=== PATIENT | male | born 1970 | race Caucasian/White ===

== ENCOUNTER 2020-05-15 00:32 | Emergency (ER) | payer MEDICAID, SELFPAY ==
[2020-05-15 00:56] VITALS: BP 189/120; PULSE 74; RESP 18; TEMP 36.7; O2SAT 98; BMI 74.0
--- NOTE | 2020-05-15 01:21 | ED_ITS ---
HPI - General Adult General Chief complaint: Ear Problems Stated complaint: EAR PAIN Time Seen by Provider: 05/15/20 01:05 Source: patient Mode of arrival: ambulatory Limitations: no limitations History of Present Illness HPI narrative: 50-year-old male with history of hypertension, diabetes presents today with left ear pain. He reports that over the past week is a throbbing, 2 of 10 intensity left ear pain. He has been using hydrogen peroxide That he has been placing side of his left ear canal but is not making the pain any better. He denies any loss of hearing. He denies any sore throat or runny nose. he denies any fevers, chills. He denies any chest pain shortness of breath. He is without further systemic complaints. Onset (ago): week(s) ( One week) Severity: mild Severity scale (1-10): 2 Pain Consistency: constant Relieving factors: none Exacerbating factors: none Associated symptoms: denies other symptoms Related Data Previous Rx's Medication Instructions Recorded amoxicillin-pot clavulanate 1 tab PO BID 5 Days #10 tab 05/15/20 [Augmentin] Allergies Allergy/AdvReac Type Severity Reaction Status Date / Time No Known Allergies Allergy Unverified 04/30/20 15:28 Review of Systems Constitutional: Constitutional: Denies daytime sleepiness Eyes: Eyes: Reports blurry vision and Reports decreased night vision ENT: Reports Normal hearing present, Denies halitosis, Denies dysphagia, Reports otalgia ( left ear), Denies nasal congestion, Denies nasal discharge and Denies nose pain Cardiovascular: Cardiovascular: Denies epigastric discomfort, Denies rapid heart rate and Denies dyspnea on exertion Respiratory: Respiratory: Denies pain with cough and Denies dyspnea on exertion Gastrointestinal: Gastrointestinal: Denies change in stool character, Denies GI cramping and Denies dysphagia Genitourinary: Genitourinary: Denies change in libido Musculoskeletal: Musculoskeletal: Denies joint swelling and Denies stiffness Neurologic: Reports Normal hearing present Psychiatric: Psychiatric: Denies change in libido Endocrine: Endocrine: Denies change in libido [facility] Social History Social History (Updated 05/15/20 @ 01:26 by Sabas De La Rosa MD) Smoking Status: Current every day smoker Tobacco Type: Cigarette Packs Per Day: 1 Cigarettes Per Day: 20.0 Smoked in Last 30 Days: Yes Patient Interested in Nicotine Replacement: No Advance Directives: No Advance Directives Information Provided: No Physical Exam Vital Signs and I&O and Narrative: Vital Signs and I&O: Vital Signs Temp 98.0 F 05/15/20 00:56 Pulse 74 05/15/20 00:56 Resp 18 05/15/20 00:56 BP 189/120 H 05/15/20 00:56 Pulse Ox 98 05/15/20 00:56 Intake & Output 05/14/20 05/14/20 05/15/20 06:59 18:59 06:59 Weight 241 kg Body Mass Index 74.0 Const: General: cooperative, no acute distress, alert and awake Orientation/consciousness: patient oriented x3 HENMT: Head: Yes normal to inspection, Yes normocephalic and Yes atraumatic Ears: hearing grossly normal bilaterally, external ears normal, TM normal on the right, left TM abnormal ( left tympanic membrane is erythematous and bu lging.), mastoids normal, no periauricular adenopathy and other ( No tenderness to palpation with pulling of the tragus. ) Mouth: Normal oral and palatal mucosa present Eyes: Eyelids: Yes eyelids normal Conjunctivae: conjunctivae normal Sclerae: sclerae normal Corneas: corneas normal EOM: EOMs intact bilaterally Neck: Neck: Yes normal visual inspection, Yes full ROM and Yes trachea midline Resp: Effort & Inspection: normal respiratory effort and no tracheal deviation Auscultation: clear to auscultation bilaterally Cardio: Jugular venous distension: no JVD Rate: regular rate Rhythm: regular rhythm Heart sounds: S1 normal heart sound present and S2 normal heart sound present GI: Inspection: Yes normal to inspection Palpation (GI): Soft to palpation and nontender Skin: General skin exam: no rashes or lesions noted Neuro: General: patient oriented x3 and moves all extremities Cranial nerves: Yes Normal hearing present Motor exam (neuro): Normal motor muscle tone present throughout Extrem: General: Yes normal to inspection and Yes full ROM Psych: Appearance: grossly normal and well kempt Mental Status: mental status grossly normal Medical Decision Making MDM Narrative Medical decision making narrative: 50-year-old male who presents today with left ear pain for about 1 week. He has been using hydrogen peroxide to make it better. His physical exam reveals a well-appearing male, no acute distress. He has bulging and erythematous left tympanic membrane. Exam is consistent with otitis media. He has no mastoid tenderness, no periauricular lymphadenopathy and was suspicion of mastoiditis. He has no pain with pulling on the tragus I doubt otitis externa. The patient is placed on Augmentin. He was given discharge instructions and return precautions which were acknowledged. Discharge Plan Discharge Clinical Impression: Acute pain of left ear, Otitis media Patient Disposition: Home, Self-Care Instructions: Ear Infection (ED) Additional Instructions: Take the antibiotic as prescribed for a total of 5 days. Please use 650 mg of acetaminophen every 6 hours for your pain. Followup with your primary care doctor as needed. If you develop any new or concerning symptoms please return to the emergency department. Prescriptions: New amoxicillin-pot clavulanate [Augmentin] 875-125 mg tablet 1 tab PO BID 5 Days Qty: 10 RF: 0
[2020-05-15] MEDS: Amoxicillin/Potassium Clav 875 MG TABLET PO (01:24)
== END 2020-05-15 01:59 | disposition home or self-care (01) ==
PROVIDERS: Emergency Provider Emergency Medicine
DX: H66.92 Otitis media, unspecified, left ear (principal); I10 Essential (primary) hypertension; E11.9 Type 2 diabetes mellitus without complications; F17.210 Nicotine dependence, cigarettes, uncomplicated
CPT/HCPCS: 99283

== ENCOUNTER 2020-05-19 16:36 | Emergency (ER) | payer MEDICAID, SELFPAY ==
[2020-05-19 17:06] VITALS: BP 174/119; PULSE 91; RESP 16; TEMP 36.8; O2SAT 97; BMI 38.0
--- NOTE | 2020-05-19 17:13 | ED_ITS ---
HPI - Ear Problem General Chief complaint: Ear Problems Stated complaint: ?EAR INFECTION Time Seen by Provider: 05/19/20 16:55 Source: patient Mode of arrival: ambulatory Limitations: no limitations History of Present Illness HPI Narrative: left ear pain, swelling, decreased hearing x days. Seen here 1 week ago and prescribed augmentin for presumed AOM. Complaint: ear pain and decreased hearing Location: left ear Duration: constant Severity: mild Relieving factors: nothing Exacerbating factors: nothing Discharge from ear: no Related Data Previous Rx's Medication Instructions Recorded amoxicillin-pot clavulanate 1 tab PO BID 5 Days #10 tab 05/15/20 [Augmentin] ciprofloxacin HCl 500 mg PO BID #14 tab 05/19/20 ciprofloxacin-dexamethasone 4 drp OTIC (EARS) BID 7 Days #7.5 05/19/20 [Ciprodex] ml Allergies Allergy/AdvReac Type Severity Reaction Status Date / Time No Known Allergies Allergy Verified 05/19/20 17:12 Review of Systems Review of Systems: Yes all other systems are reviewed and are negative Constitutional: Constitutional: Reports no additional constitutional complaints, Denies body ache(s), Denies chills, Denies fever(s), Denies headache(s) and Denies weakness Eyes: Eyes: Reports no additional eye complaints and Denies change in vision ENT: Reports system reviewed and no additional complaints, except as documented, Denies dizziness, Reports otalgia, Denies headache(s), Reports hearing loss, Denies nasal congestion, Denies nasal discharge and Denies neck pain Cardiovascular: Cardiovascular: Reports no additional cardiovascular complaints, Denies chest pain, Denies leg edema and Denies dyspnea Respiratory: Respiratory: Reports no additional respiratory complaints, Denies cough and Denies dyspnea Gastrointestinal: Gastrointestinal: Reports no additional gastrointestinal complaints, Denies abdominal pain, Denies diarrhea, Denies nausea and Denies vomiting Genitourinary: Genitourinary: Denies urinary incontinence Musculoskeletal: Musculoskeletal: Reports no additional musculoskeletal complaints, Denies back pain, Denies arthralgias, Denies joint swelling, Denies neck pain, Denies numbness and Denies tingling Integumentary/Breasts: Skin/Breast: Reports system reviewed and no additional complaints, except as docu and Denies rash Neurologic: Reports system reviewed and no additional complaints, except as documented, Denies Abnormal speech present, Denies dizziness, Denies headache(s), Denies numbness, Denies tingling and Denies weakness [facility] Past Medical History Attestation statement: The following information was validated with the patient. Source: obtained from family and nursing notes reviewed Medical History Diabetic acidosis, type II HTN (hypertension) Social History Social History Alcohol intake: never Smoking Status: Current every day smoker Tobacco Type: Cigarette Packs Per Day: 1 Cigarettes Per Day: 20.0 Smoked in Last 30 Days: Yes Use of substances other than those prescribed or required for medical reasons: No Substance Use Type: Marijuana Any prior treatment program specific to substance use: No Advance Directives: No Advance Directives Information Provided: No Physical Exam Vital Signs and I&O and Narrative: Vital Signs and I&O: Vital Signs Temp 98.3 F 05/19/20 17:06 Pulse 91 05/19/20 17:06 Resp 16 05/19/20 17:06 BP 174/119 H 05/19/20 17:06 Pulse Ox 97 05/19/20 17:06 Intake & Output 05/18/20 05/19/20 05/19/20 18:59 06:59 18:59 Weight 123.831 kg Body Mass Index 38.0 Const: General: cooperative, healthy appearing, comfortable and no acute distress Orientation/consciousness: patient oriented x3 Limitations: no limitations HENMT: Head: Yes normal to inspection Ears: hearing grossly normal bilaterally, external ear abnormal (L canal swelling/tenderness), normal mastoids bilaterally, no periauricular adenopathy and unable to visualize TM General nose exam: Normal external nose present Face and sinus: Yes normal facial exam Mouth: Normal oral and palatal mucosa present Throat: Yes posterior oropharynx normal Eyes: General: appearance normal, both eyes and all related structures Pupils: Equal, round and reactive pupils present Neck: Neck: Yes normal visual inspection Chest: Chest palpation & inspection: normal inspection of the chest Resp: Effort & Inspection: normal respiratory effort Auscultation: clear to auscultation bilaterally Cardio: Rate: regular rate Rhythm: regular rhythm Peripheral pulses: Peripheral pulses 2+ throughout GI: Inspection: Yes normal to inspection Palpation (GI): Soft to palpation and nontender Auscultation: normal bowel sounds Back/Spine/Pelvis: Thoracic/Lumbar Spine: thoracic and lumbar spine normal to inspection Skin: General skin exam: no rashes or lesions noted Neuro: General: patient oriented x3, no focal motor deficits and normal sensation to monofilament Cranial nerves: Yes Equal, round and reactive pupils present Cognition (Neuro): normal cognition Speech: No Abnormal speech present Gait exam (Neuro): Normal gait present Motor exam (neuro): 5/5 motor strength present throughout Extrem: General: Yes normal to inspection Procedures Procedure Narrative Procedure Narrative: Ear wick placed left ear with drops MDM - Ear MDM Narrative Medical decision making narrative: left otitis externa. No mastoid tenderness, lymphadenopathy. Wick placed with drops. Hypertensive. Patient tells me he has been not been taking his medications for the last few days. Asymptomatic. We discussed resuming medications as soon as possible. Reviewed worrisome signs and symptoms and when to return to the emergency department. Comfortable discharge home. Discharge Plan Discharge Clinical Impression: Hypertension Otitis externa Qualifiers: Otitis externa type: diffuse Chronicity: acute Laterality: left Qualified Code( s): H60.312 - Diffuse otitis externa, left ear Patient Disposition: Home, Self-Care Instructions: Otitis Externa (ED) Additional Instructions: Remove the wick after 3 days if it doesnt fall out by itself Return for severe pain behind ear or fever >100.4 Your blood pressure was very high. Please start taking your medications again. Prescriptions: New ciprofloxacin-dexamethasone [Ciprodex] 0.3-0.1 % drops,suspension 4 drp otic (ears) BID 7 Days Qty: 7.5 RF: 0 ciprofloxacin HCl 500 mg tablet 500 mg PO BID Qty: 14 RF: 0 No Action amoxicillin-pot clavulanate [Augmentin] 875-125 mg tablet 1 tab PO BID 5 Days Qty: 10 RF: 0 Referrals: Physician,Unknown [Primary Care Provider] - 2 days ( )
[2020-05-19] MEDS: NeoMYCIN/Polymyxin/HC Otic Sol BOTTLE 4 DROP EAR-LEFT (17:20)
--- NOTE | 2020-05-19 17:35 | PC.NURSE ---
EAR WICK PLACED AND EAR DROPS GIVE TO LEFT EAR BY SCAR SQUIRES.
== END 2020-05-19 17:56 | disposition home or self-care (01) ==
PROVIDERS: Emergency Provider Emergency Medicine
DX: H60.312 Diffuse otitis externa, left ear (principal); H92.02 Otalgia, left ear; I10 Essential (primary) hypertension; F17.200 Nicotine dependence, unspecified, uncomplicated; Z71.6 Tobacco abuse counseling
CPT/HCPCS: 99283; 99284

== ENCOUNTER 2020-07-16 11:21 | Outpatient (REF) | payer MEDICAID, SELFPAY | END 2020-07-16 11:22 | disposition home or self-care (01) | LOC: HO.LAB 11:21 | PROVIDERS: Visit Provider Internal Medicine | DX: Z20.828 Contact with and (suspected) exposure to other viral communicable diseases (principal) | CPT/HCPCS: C9803; U0003 ==

== ENCOUNTER 2020-07-27 15:56 | Emergency (ER) | payer MEDICAID, SELFPAY ==
[2020-07-27 16:08] VITALS: BP 155/106; PULSE 93; RESP 16; TEMP 37.1; O2SAT 97; BMI 36.2
--- NOTE | 2020-07-27 17:29 | CT_ITS ---
EXAMINATION: CT ABDOMEN AND PELVIS WITHOUT CONTRAST CLINICAL INFORMATION: Right flank pain. Hematuria. COMPARISON: None. TECHNIQUE: Contiguous axial thin section helical images of the abdomen and pelvis were performed without oral or IV contrast. The data set was reformatted in the coronal and sagittal planes and reviewed on an independent workstation. DLP: 818 mGy-cm. FINDINGS: The visualized lung bases are clear. The visualized portions of the heart are unremarkable. The liver is of normal size and diffuse decreased attenuation without focal lesions nor intrahepatic biliary ductal dilation. The patient is status post cholecystectomy. Surgical clips are present. The spleen, pancreas, adrenal glands are unremarkable. Both kidneys are of normal size and attenuation without hydronephrosis or nephrolithiasis. There is a 3.7 cm left renal cyst. There is no abdominal free fluid. There is neither mesenteric nor retroperitoneal lymphadenopathy. There is sigmoid diverticulosis with trace adjacent fat stranding. There are no fluid collections. Otherwise, unremarkable unopacified loops of small and large bowel are identified. There is no pelvic free fluid. The urinary bladder is unremarkable. There is neither pelvic nor inguinal lymphadenopathy. Bone windows: Neither sclerotic nor lytic bone lesions are identified. CT/CT abdomen pelvis wo con IMPRESSION: Neither hydronephrosis nor nephrolithiasis. Sigmoid diverticulosis with trace adjacent fat stranding likely inside outside sales representative of mild manifestations of diverticulitis. No drainable fluid collections. Automated exposure control (Care Dose) Adjustment of the mA and/or kv according to patient size (this includes techniques or standardized protocols for targeted exams where dose is matched to indication / reason for exam; i.e. extremities or head).
[2020-07-27 17:39] LABS: Basophils Absolute Auto 0.1 X10*3/uL (0.0-0.2); Basophils Percent Auto 1.1 % (0-2); Eosinophils Absolute Auto 0.3 X10*3/uL (0.0-0.4); Eosinophils Percent Auto 3.4 % (0-4); Hematocrit 50.1 % (42-52); Hemoglobin 16.3 g/dl (14.0-18.0); Imm Gran Abs Auto 0.03 X10*3/uL (0.00-0.03); Imm Gran Pct Auto 0.4 % (0.0-0.4); Lymphocytes Absolute Auto 2.2 X10*3/uL (1.2-4.9); MANUAL DIFF FLAG NO; Mean Corpuscular HGB Conc 32.5 g/dl (31.0-36.0); Mean Corpuscular Hemoglobin 27.4 pg (27.0-33.0); Mean Corpuscular Volume 84.2 fL (80-98); Mean Platelet Volume 11.9 fL (9.4-12.4); Monocytes Absolute Auto 0.6 X10*3/uL (0.1-1.2); Monocytes Percent Auto 7.6 % (2-11); Neutrophils Percent Auto 60.5 % (45-73); Platelet Count 222 X10*3/uL (160-400); Red Blood Count 5.95 X10*6/uL (4.60-5.80); Red Cell Distribution Width 13.4 % (11.0-16.0); White Blood Count 8.3 X10*3/uL (4.8-10.8)
[2020-07-27] MEDS: 0.9 % Sodium Chloride 1,000 ML 999 ML IV (17:54)
[2020-07-27 17:58] LABS: COVID-19 Test Negative (Negative)
[2020-07-27 18:00] VITALS: BP 164/100; PULSE 70; RESP 16; TEMP 36.4; O2SAT 99
[2020-07-27 18:00] LABS: Glucose Urine UA NEG (NEG); Leukocyte Esterase Urine 1+ (NEG); Nitrite Urine NEG (NEG); PH 5.5 (5.0-8.0); Specific Gravity - Urine >= 1.030 (1.005-1.025); Urine Blood TRACE (NEG); Urine Ketones 5 MG/DL (NEG); Urine Protein 2+ MG/DL (NEG-TRACE)
[2020-07-27 18:03] LABS: Anion Gap 13 (12-20); Appearance Urine HAZY; Blood Urea Nitrogen 10 mg/dL (9-16); Calcium 9.2 mg/dL (8.4-10.2); Carbon Dioxide 27 mmol/L (22-29); Chloride 104 mmol/L (96-108); Color Urine DARK YELLOW; Creatinine Clr Calc Pharmacy 85.5; Estimated Glomerular Filt Rate 55; Glucose Random 112 mg/dL (60-115); Potassium 4.4 mmol/l (3.3-5.1); Sodium 140 mmol/L (135-145)
[2020-07-27 18:11] LABS: Bacteria Urine 2+ /LPF; WBC Urine 50-75 /HPF (0-4)
--- NOTE | 2020-07-27 18:19 | ED_ITS ---
HPI - Male Genitourinary General Chief complaint: Urogenital-Male Stated complaint: Covid symptoms Time Seen by Provider: 07/27/20 17:06 Source: patient Mode of arrival: ambulatory Limitations: no limitations History of Present Illness HPI Narrative: 50-year-old male with past medical history of hypertension and diabetes presents with 3 days of fevers, left-sided and suprapubic abdominal pain, diarrhea, difficulty urinating, and possible exposure to sexually transmitted infection. He does not report any penile discharge, testicular pain, chest pain, chest pressure, palpitations, shortness of breath abdominal distention, weakness and chills. MD Complaint: dysuria and possible STD exposure Onset (ago): day(s) (3) Duration: constant Location: left flank and abdomen Severity: moderate Severity scale (1-10): 8 Quality: aching, burning and stabbing Relieving factors: none Exacerbating factors: urination, movement and bowel movement Context: known STD exposure Associated symptoms: Reports denies other symptoms Related Data Sexually active: Yes Previous Rx's Medication Instructions Recorded amoxicillin-pot clavulanate 1 tab PO BID 5 Days #10 tab 05/15/20 [Augmentin] ciprofloxacin HCl 500 mg PO BID #14 tab 05/19/20 ciprofloxacin-dexamethasone 4 drp OTIC (EARS) BID 7 Days #7.5 05/19/20 [Ciprodex] ml levofloxacin 750 mg PO Q24H 7 Days #7 tab 07/27/20 metronidazole [Flagyl] 500 mg PO Q8H 7 Days #21 tab 07/27/20 Allergies Allergy/AdvReac Type Severity Reaction Status Date / Time No Known Allergies Allergy Verified 05/19/20 17:12 Review of Systems Review of Systems: Constitutional: No Weight loss, positive Fever, No Chills, No Night Sweats, positive Fatigue, No Malaise ENT/Mouth: No Hearing loss, No Ear Pain, No Nasal Congestion, No Sinus Pain, No Hoarseness, No sore throat, No Rhinorrhea, No Swallowing Difficulty Eyes: No Eye Pain, No Swelling, No Redness, No Foreign Body, No Discharge, No Vision Changes Cardiovascular: No Chest Pain, No SOB, No Dyspnea on Exertion, No Orthopnea, No Edema, No Palpitations Respiratory: No Cough, No Sputum, No Wheezing, No Smoke Exposure, No Dyspnea Gastrointestinal: Positive Nausea, no Vomiting, positive Diarrhea, positive abdominal Pain, No Hematochezia, No Melena Genitourinary: no irregular bleeding, No Dysuria, No Urinary Frequency, No Hematuria, No Urinary Incontinence, No Urgency, positive left Flank Pain, No Urinary Flow Changes, positive Hesitancy Musculoskeletal: No joint pain, No Myalgias, No Joint Swelling Skin: No Skin Lesions, No rash Neuro: No Weakness, No Numbness, No Paresthesias, No Loss of Consciousness, No Dizziness, No Headache Psych: No Anxiety/Panic, No Depression, No SI/HI/AH/VH, No Social Issues Heme/Lymph: No Bruising, No Bleeding,No Lymphadenopathy Endocrine: No Polyuria, No Polydipsia, No Temperature Intolerance Yes all other systems are reviewed and are negative PMFSH Past Medical History Attestation statement: The following information was validated with the patient. Medical History Diabetic acidosis, type II HTN (hypertension) Social History Social History Alcohol intake: never Smoking Status: Current every day smoker Tobacco Type: Cigarette Packs Per Day: 1 Cigarettes Per Day: 20.0 Substance Use Type: Marijuana Advance Directives: No Advance Directives Information Provided: No Physical Exam Vital Signs: Vital Signs: Last Vital Signs Temp 97.6 F 07/27/20 18:00 Pulse 70 07/27/20 18:00 Resp 16 07/27/20 18:00 BP 164/100 H 07/27/20 18:00 Pulse Ox 99 07/27/20 18:00 Body Mass Index 36.2 Appearance: Alert. Oriented X3. Moderate distress. Eyes: Pupils equal, round and reactive to light. ENT: Pharynx normal. Neck: Normal inspection. Neck supple. CVS: Tachycardic heart rate and rhythm. Pulses normal. Respiratory: No respiratory distress. Breath sounds normal. Abdomen: Soft and tenderness to left lower quadrant and suprapubic, negative psoas, obturator, Strange's, McBurney's. No genital lesions or penile discharge Skin: Skin warm and dry. Normal skin color. Normal skin turgor. Extremities: No lower extremity edema. Neuro: No motor deficit. No sensory deficit. Course Course Course Narrative: 50-year-old male with hypertension and diabetes presents with multiple concerns. We will test for STI and treat for chlamydia and gonorrhea. If syphilis returns positive we will treat with penicillin. Patient does have bilateral CVA tenderness, left lower quadrant pain, and suprapubic abdominal pain to palpation. Will order CBC, Chem 7, urinalysis, and CT scan of the abdomen. Labs are otherwise normal, urinalysis indicates UTI, CT scan of the abdomen shows mild diverticulitis. Plan is to treat with Levaquin and Flagyl for intra- abdominal infection. Levaquin will cover for UTI patient continues to be hypertensive at 164/100 upon discharge patient was advised to follow-up with primary care for further workup. Patient verbalized understanding of and agrees to plan of care discharge home. MDM - Male Genitourinary Differential Diagnosis Differential diagnosis: Likely urinary tract infection, urethritis, epididymitis, prostatitis, acute retention of urine and inguinal hernia Medical Records Attestation: I reviewed the patient's medical records. Lab Data Attestation: I reviewed the patient's lab results. Result diagrams: 07/27/20 17:30 07/27/20 17:30 Labs: Lab Results 07/27/20 07/27/20 07/27/20 Range/Units 17:30 17:30 17:30 WBC 8.3 (4.8-10.8) X10*3/uL RBC 5.95 H (4.60-5.80) X10*6/uL Hgb 16.3 (14.0-18.0) g/dl Hct 50.1 (42-52) % MCV 84.2 (80-98) fL MCH 27.4 (27.0-33.0) pg MCHC 32.5 (31.0-36.0) g/dl RDW 13.4 (11.0-16.0) % Plt Count 222 (160-400) X10*3/uL MPV 11.9 (9.4-12.4) fL Immature Gran % (Auto) 0.4 (0.0-0.4) % Neut % (Auto) 60.5 (45-73) % Lymph % (Auto) 27.0 (20-40) % Gates % (Auto) 7.6 (2-11) % Eos % (Auto) 3.4 (0-4) % Baso % (Auto) 1.1 (0-2) % Lymph # (Auto) 2.2 (1.2-4.9) X10*3/uL Gates # (Auto) 0.6 (0.1-1.2) X10*3/uL Eos # (Auto) 0.3 (0.0-0.4) X10*3/uL Baso # (Auto) 0.1 (0.0-0.2) X10*3/uL Abs Immat Gran (auto) 0.03 (0.00-0.03) X10*3/uL Absolute Neuts (auto) 5.0 (2.0-8.3) X10*3/uL Absolute Nucleated RBC 0.000 (0.0-0.012) X10*3/uL Nucleated RBC % (auto) 0.0 (0.0-0.2) /100WBC Sodium 140 (135-145) mmol/L Potassium 4.4 (3.3-5.1) mmol/l Chloride 104 (96-108) mmol/L Carbon Dioxide 27 (22-29) mmol/L Anion Gap 13 (12-20) BUN 10 (9-16) mg/dL Creatinine 1.38 (0.5-1.4) mg/dL Estim Creat Clear Calc 85.5 Estimated GFR 55 Random Glucose 112 (60-115) mg/dL Calcium 9.2 (8.4-10.2) mg/dL Urine Color DARK YELLOW Urine Appearance HAZY Urine pH 5.5 (5.0-8.0) Ur Specific [place] >= 1.030 H (1.005-1.025) Urine Protein 2+ H (NEG-TRACE) MG/DL Urine Glucose (UA) NEG (NEG) MG/DL Urine Ketones 5 (NEG) MG/DL Urine Blood TRACE (NEG) Urine Nitrite NEG (NEG) Ur Leukocyte Esterase 1+ H (NEG) Urine RBC 1-4 (0) /HPF Urine WBC 50-75 H (0-4) /HPF Ur Squamous Epith Cells NONE /LPF Urine Bacteria 2+ /LPF T.pallidum Ab (EIA) (Nonreactive) COVID-19 (YAMILETH) (Negative) COVID-19 Clin Com 07/27/20 07/27/20 Range/Units 17:30 18:03 WBC (4.8-10.8) X10*3/uL RBC (4.60-5.80) X10*6/uL Hgb (14.0-18.0) g/dl Hct (42-52) % MCV (80-98) fL MCH (27.0-33.0) pg MCHC (31.0-36.0) g/dl RDW (11.0-16.0) % Plt Count (160-400) X10*3/uL MPV (9.4-12.4) fL Immature Gran % (Auto) (0.0-0.4) % Neut % (Auto) (45-73) % Lymph % (Auto) (20-40) % Gates % (Auto) (2-11) % Eos % (Auto) (0-4) % Baso % (Auto) (0-2) % Lymph # (Auto) (1.2-4.9) X10*3/uL Gates # (Auto) (0.1-1.2) X10*3/uL Eos # (Auto) (0.0-0.4) X10*3/uL Baso # (Auto) (0.0-0.2) X10*3/uL Abs Immat Gran (auto) (0.00-0.03) X10*3/uL Absolute Neuts (auto) (2.0-8.3) X10*3/uL Absolute Nucleated RBC (0.0-0.012) X10*3/uL Nucleated RBC % (auto) (0.0-0.2) /100WBC Sodium (135-145) mmol/L Potassium (3.3-5.1) mmol/l Chloride (96-108) mmol/L Carbon Dioxide (22-29) mmol/L Anion Gap (12-20) BUN (9-16) mg/dL Creatinine (0.5-1.4) mg/dL Estim Creat Clear Calc Estimated GFR Random Glucose (60-115) mg/dL Calcium (8.4-10.2) mg/dL Urine Color Urine Appearance Urine pH (5.0-8.0) Ur Specific [place] (1.005-1.025) Urine Protein (NEG-TRACE) MG/DL Urine Glucose (UA) (NEG) MG/DL Urine Ketones (NEG) MG/DL Urine Blood (NEG) Urine Nitrite (NEG) Ur Leukocyte Esterase (NEG) Urine RBC (0) /HPF Urine WBC (0-4) /HPF Ur Squamous Epith Cells /LPF Urine Bacteria /LPF T.pallidum Ab (EIA) Nonreactive (Nonreactive) COVID-19 (YAMILETH) Negative (Negative) COVID-19 Clin Com See Note Imaging Data CT scan - abdomen: Attestation: I personally reviewed and interpreted this imaging study as follows: Radiologist's impression: EXAMINATION: CT ABDOMEN AND PELVIS WITHOUT CONTRAST CLINICAL INFORMATION: Right flank pain. Hematuria. COMPARISON: None. TECHNIQUE: Contiguous axial thin section helical images of the abdomen and pelvis were performed without oral or IV contrast. The data set was reformatted in the coronal and sagittal planes and reviewed on an independent workstation. DLP: 818 mGy-cm. FINDINGS: The visualized lung bases are clear. The visualized portions of the heart are unremarkable. The liver is of normal size and diffuse decreased attenuation without focal lesions nor intrahepatic biliary ductal dilation. The patient is status post cholecystectomy. Surgical clips are present. The spleen, pancreas, adrenal glands are unremarkable. Both kidneys are of normal size and attenuation without hydronephrosis or nephrolithiasis. There is a 3.7 cm left renal cyst. There is no abdominal free fluid. There is neither mesenteric nor retroperitoneal lymphadenopathy. There is sigmoid diverticulosis with trace adjacent fat stranding. There are no fluid collections. Otherwise, unremarkable unopacified loops of small and large bowel are identified. There is no pelvic free fluid. The urinary bladder is unremarkable. There is neither pelvic nor inguinal lymphadenopathy. Bone windows: Neither sclerotic nor lytic bone lesions are identified. CT/CT abdomen pelvis wo con IMPRESSION: Neither hydronephrosis nor nephrolithiasis. Sigmoid diverticulosis with trace adjacent fat stranding likely customer development representative of mild manifestations of diverticulitis. No drainable fluid collections. Automated exposure control (Care Dose) Adjustment of the mA and/or kv according to patient size (this includes techniques or standardized protocols for targeted exams where dose is matched to indication / reason for exam; i.e. extremities or head). Discharge Plan Discharge Clinical Impression: Diverticulitis, Routine screening for STI (sexually transmitted infection) Patient Disposition: Home, Self-Care Instructions: Diverticulitis (ED), Sexually Transmitted Diseases (ED) Additional Instructions: You were evaluated for abdominal pain and urinary symptoms. We treated you for chlamydia and gonorrhea. We tested you for syphilis, if your syphilis test comes back positive please return for penicillin injection. CT scan of the abdomen shows diverticulitis. We have prescribed Levaquin and Flagyl. These medications are antibiotics. Please complete entire course of both. Do not drink alcohol while you are taking Flagyl. You can have a significant adverse reaction if you mix Flagyl and alcohol. Thank you for choosing this emergency department for evaluation. Please follow-up with primary care physician as needed. Return to the emergency department for any new, concerning, or worsening symptoms. Prescriptions: New levofloxacin 750 mg tablet 750 mg PO Q24H 7 Days Qty: 7 RF: 0 metronidazole [Flagyl] 500 mg tablet 500 mg PO Q8H 7 Days Qty: 21 RF: 0 No Action amoxicillin-pot clavulanate [Augmentin] 875-125 mg tablet 1 tab PO BID 5 Days Qty: 10 RF: 0 ciprofloxacin-dexamethasone [Ciprodex] 0.3-0.1 % drops,suspension 4 drp otic (ears) BID 7 Days Qty: 7.5 RF: 0 ciprofloxacin HCl 500 mg tablet 500 mg PO BID Qty: 14 RF: 0 Interventions: ED Discharge Assessment Last Done: 07/27/20 19:14 Discharge Date/Time: 07/27/20 19:17
[2020-07-27] MEDS: Azithromycin 500 MG TABLET 1000 MG PO (18:41)
[2020-07-27] MEDS: cefTRIAXone sodium 250 MG, Lidocaine HCl 1 % MPF 0.9 ML IM (18:41)
[2020-07-27 18:56] LABS: Syphilis Screen Nonreactive (Nonreactive)
[2020-07-27] MEDS: levoFLOXacin 750 MG TABLET PO (18:59)
[2020-07-27] MEDS: metroNIDAZOLE 500 MG TABLET PO (18:59)
[2020-08-22 11:28] LABS: CT PCR NOT DETECTED (Not Detect.); NG PCR NOT DETECTED (Not Detect.)
== END 2020-07-27 19:17 | disposition home or self-care (01) ==
PROVIDERS: Nurse Practitioner Family; Emergency Provider Internal Medicine
DX: K57.32 Diverticulitis of large intestine without perforation or abscess without bleeding (principal); Z20.2 Contact with and (suspected) exposure to infections with a predominantly sexual mode of transmission; Z20.828 Contact with and (suspected) exposure to other viral communicable diseases; I10 Essential (primary) hypertension; E11.9 Type 2 diabetes mellitus without complications
CPT/HCPCS: 36415; 74176; 80048; 81001; 85025; 86780; 87086; 87491; 87591; 87635; 96361; 96374; 99283; 99284; J0696

== ENCOUNTER 2020-08-10 13:22 | Emergency (ER) | payer MEDICAID, SELFPAY ==
[2020-08-10 16:08] VITALS: BP 181/117; PULSE 93; RESP 16; TEMP 36.8; O2SAT 96; BMI 37.2
--- NOTE | 2020-08-10 16:08 | ED.BACK ---
HPI - Back Pain/Injury General Chief Complaint: Back Pain/Injury Stated Complaint: back pain Time Seen by Provider: 08/10/20 15:59 Source: patient Mode of arrival: ambulatory Limitations: no limitations History of Present Illness HPI Narrative: Right upper back pain x several days worsened with movement of right arm, palpation, deep breathing, coughing and sneezing. No shortness of breath, cough, fevers, chills. 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 Does not recall any specific injury or trauma. Taking motrin at home with persistent symptoms. MD elicited complaint: back pain Onset (ago): day(s) Timing: intermittent Severity: mild Quality: dull and aching Location: right upper back Radiation: none Exacerbating factors: none Relieving factors: none Associated symptoms: denies other symptoms Work related injury: No Related Data Previous Rx's Medication Instructions Recorded amoxicillin-pot clavulanate 1 tab PO BID 5 Days #10 tab 05/15/20 [Augmentin] ciprofloxacin HCl 500 mg PO BID #14 tab 05/19/20 ciprofloxacin-dexamethasone 4 drp OTIC (EARS) BID 7 Days #7.5 05/19/20 [Ciprodex] ml levofloxacin 750 mg PO Q24H 7 Days #7 tab 07/27/20 metronidazole [Flagyl] 500 mg PO Q8H 7 Days #21 tab 07/27/20 cyclobenzaprine 10 mg PO TID PRN #10 tab 08/10/20 Allergies Allergy/AdvReac Type Severity Reaction Status Date / Time No Known Allergies Allergy Verified 05/19/20 17:12 Review of Systems Review of Systems: Yes all other systems are reviewed and are negative Constitutional: Constitutional: Reports no additional constitutional complaints, Denies body ache(s), Denies chills, Denies fever(s), Denies headache(s) and Denies weakness Eyes: Eyes: Reports no additional eye complaints and Denies change in vision ENT: Reports system reviewed and no additional complaints, except as documented, Denies dizziness, Denies headache(s), Denies nasal congestion, Denies nasal discharge and Denies neck pain Cardiovascular: Cardiovascular: Reports no additional cardiovascular complaints, Denies chest pain, Denies leg edema and Denies dyspnea Respiratory: Respiratory: Reports no additional respiratory complaints, Denies cough and Denies dyspnea Gastrointestinal: Gastrointestinal: Reports no additional gastrointestinal complaints, Denies abdominal pain, Denies diarrhea, Denies nausea and Denies vomiting Genitourinary: Genitourinary: Denies urinary incontinence Musculoskeletal: Musculoskeletal: Reports no additional musculoskeletal complaints, Reports back pain, Denies arthralgias, Denies joint swelling, Denies neck pain, Denies numbness and Denies tingling Integumentary/Breasts: Skin/Breast: Reports system reviewed and no additional complaints, except as docu and Denies rash Neurologic: Reports system reviewed and no additional complaints, except as documented, Denies Abnormal speech present, Denies dizziness, Denies headache(s), Denies numbness, Denies tingling and Denies weakness PMFSH Past Medical History Attestation statement: The following information was validated with the patient. Source: old records reviewed and nursing notes reviewed Medical History Diabetic acidosis, type II HTN (hypertension) Social History Social History Alcohol intake: never Smoking Status: Current every day smoker Tobacco Type: Cigarette Packs Per Day: 1 Cigarettes Per Day: 20.0 Substance Use Type: Marijuana Advance Directives: No Advance Directives Information Provided: Yes Physical Exam Vital Signs: Vital Signs: Last Vital Signs Temp 98.2 F 08/10/20 16:08 Pulse 93 08/10/20 16:08 Resp 16 08/10/20 16:08 BP 181/117 H 08/10/20 16:08 Pulse Ox 96 08/10/20 16:08 Body Mass Index 37.2 Const: General: cooperative, healthy appearing, comfortable and no acute distress Orientation/consciousness: patient oriented x3 Limitations: no limitations HENMT: Head: Yes normal to inspection Ears: hearing grossly normal bilaterally General nose exam: Normal external nose present Face and sinus: Yes normal facial exam Mouth: Normal oral and palatal mucosa present Throat: Yes posterior oropharynx normal Eyes: General: appearance normal, both eyes and all related structures Pupils: Equal, round and reactive pupils present Neck: Neck: Yes normal visual inspection Chest: Chest palpation & inspection: normal inspection of the chest Resp: Effort & Inspection: normal respiratory effort Auscultation: clear to auscultation bilaterally Cardio: Rate: regular rate Rhythm: regular rhythm Peripheral pulses: Peripheral pulses 2+ throughout GI: Inspection: Yes normal to inspection Palpation (GI): Soft to palpation and nontender Auscultation: normal bowel sounds Back/Spine/Pelvis: Other: R upper back pain just below the scapula with palpable muscle spasm. No midline tenderness, step offs or deformities Thoracic/Lumbar Spine: thoracic and lumbar spine normal to inspection Skin: General skin exam: no rashes or lesions noted Neuro: General: patient oriented x3, no focal motor deficits and normal sensation to monofilament Cranial nerves: Yes Equal, round and reactive pupils present Cognition (Neuro): normal cognition Speech: No Abnormal speech present Gait exam (Neuro): Normal gait present Motor exam (neuro): 5/5 motor strength present throughout Extrem: General: Yes normal to inspection Course Course Course Narrative: Palpable MS pain with muscle spasm. No fall or injury or midline tenderness. Asymptomatic hypertension. Reviewed worrisome signs and symptoms of when to return to the emergency department. Comfortable discharge home. Discharge Plan Discharge Clinical Impression: Muscle strain Patient Disposition: Home, Self-Care Instructions: Muscle Strain (ED) Additional Instructions: Heat to the area Gentle stretching If no improvement in a few days consider seeing a chiropractor Continue the ibuprofen Prescriptions: New cyclobenzaprine 10 mg tablet 10 mg PO TID PRN (Reason: muscle spasm) Qty: 10 RF: 0 No Action amoxicillin-pot clavulanate [Augmentin] 875-125 mg tablet 1 tab PO BID 5 Days Qty: 10 RF: 0 levofloxacin 750 mg tablet 750 mg PO Q24H 7 Days Qty: 7 RF: 0 metronidazole [Flagyl] 500 mg tablet 500 mg PO Q8H 7 Days Qty: 21 RF: 0 ciprofloxacin-dexamethasone [Ciprodex] 0.3-0.1 % drops,suspension 4 drp otic (ears) BID 7 Days Qty: 7.5 RF: 0 ciprofloxacin HCl 500 mg tablet 500 mg PO BID Qty: 14 RF: 0 Referrals: Physician,Unknown [Primary Care Provider] - 2 days Interventions: ED Discharge Assessment Last Done: 08/10/20 16:28 Discharge Date/Time: 08/10/20 16:29
[2020-08-10] MEDS: Ibuprofen 600 MG TABLET PO (16:26)
== END 2020-08-10 16:29 | disposition home or self-care (01) ==
PROVIDERS: Emergency Provider Emergency Medicine Emergency Medical Services
DX: S29.012A Strain of muscle and tendon of back wall of thorax, initial encounter (principal); X58.XXXA Exposure to other specified factors, initial encounter; E11.9 Type 2 diabetes mellitus without complications; I10 Essential (primary) hypertension; F17.210 Nicotine dependence, cigarettes, uncomplicated; Y93.9 Activity, unspecified; Y92.9 Unspecified place or not applicable; Y99.9 Unspecified external cause status; Z79.899 Other long term (current) drug therapy
CPT/HCPCS: 99283

== ENCOUNTER 2020-08-15 12:36 | Emergency (ER) | payer MEDICAID, SELFPAY ==
[2020-08-15 13:35] VITALS: BP 157/97; PULSE 90; RESP 18; TEMP 37.1; O2SAT 98; BMI 37.2
[2020-08-15 16:00] VITALS: BP 151/86; PULSE 80; RESP 18; TEMP 36.8; O2SAT 97
--- NOTE | 2020-08-15 16:05 | PC.NURSE ---
pt a&ox3, states he recently finished abx and still has abd pain, pt also states he is non-compliant with medications for psych and hypertension, pt also says he no longer takes insulin stopped all these medications in october. pt c/o -03/23 low abd pain. vss, will continue to monitor
--- NOTE | 2020-08-15 16:06 | CT_ITS ---
EXAMINATION: CT ABDOMEN AND PELVIS WITHOUT CONTRAST CLINICAL INFORMATION: Left lower quadrant pain. COMPARISON: CT abdomen/pelvis dated 07/27/2020. TECHNIQUE: Multidetector volumetric imaging was performed from the superior aspect of the liver through the pubic symphysis. Sagittal and coronal reformatted images were obtained on the technologist's workstation. This CT examination was performed using dose optimization techniques as appropriate, variously including the following: *Automated exposure control *Adjustment of mA and/or kV according to patient size (this includes techniques or standardized protocols for targeted exams where dose is matched to indication/reason for exam; i.e. extremities or head) *Use of iterative reconstruction technique DLP: 789 mGy-cm FINDINGS: LUNG BASES: The visualized lung bases are unremarkable. LIVER, GALLBLADDER, AND BILIARY TREE: The liver is normal in size and shape. Parenchymal hypoattenuation, consistent with steatosis. No focal hepatic lesion or biliary ductal dilatation is present. Status post cholecystectomy. PANCREAS: Unremarkable. SPLEEN: Unremarkable. ADRENAL GLANDS: Unremarkable. KIDNEYS AND URETERS: The kidneys are normal in size, shape, and attenuation. No hydronephrosis, hydroureter, or calculi seen. Redemonstration of an anterior midpole simple-appearing left renal cyst, unchanged. No new renal parenchymal lesion. No perinephric stranding. BLADDER: Partially distended and unremarkable. GASTROINTESTINAL TRACT: Sigmoid diverticulosis with left lower quadrant circumferential wall thickening and adjacent fat stranding, new when compared to the prior examination. Findings are consistent with mild acute diverticulitis. No extraluminal air or organized fluid collection to suggest perforation or abscess. No additional bowel wall thickening or associated inflammatory change. No small- or large-bowel obstruction. Unremarkable appendix. PERITONEAL CAVITY: No intra-abdominal free air or free fluid. No intra-abdominal mass or organized fluid collection/abscess. ABDOMINAL WALL: No significant hernia is appreciated. LYMPH NODES: No significant lymphadenopathy. VASCULAR: No abdominal aortic dilatation. Scattered atherosclerotic calcifications. Unremarkable IVC. PELVIC VISCERA: The prostate and seminal vesicles are unremarkable. OSSEOUS STRUCTURES: Unremarkable. CT/CT abdomen pelvis wo con IMPRESSION: 1. Acute left lower quadrant sigmoid diverticulitis. No evidence of perforation or abscess. 2. Hepatic steatosis. No hepatic parenchymal lesion or biliary ductal dilatation. 3. Additional chronic findings are unchanged.
--- NOTE | 2020-08-15 16:06 | ED.ABDPAIN ---
HPI - Abdominal Pain General Chief Complaint: Abdominal Pain Stated Complaint: blood in stool Time Seen by Provider: 08/15/20 16:00 Source: patient Mode of arrival: ambulatory Limitations: no limitations History of Present Illness MD elicited complaint: abdominal pain and other (brbpr with BMs 3 times in 2 weeks) Pertinent past history: diverticulitis Onset (ago): day(s) (3) Pain Consistency: intermittent Location: LLQ Severity: similar to previous episodes Quality: aching Radiation: LLQ Migration to: no migration Exacerbating factors: nothing Relieving factors: nothing Context: recent antibiotic use (was on levofloxacin and flagyl for mild diverticulitis 2 weeks ago finished course) Associated symptoms: hematochezia (3 episodes in 2 weeks one today, no AC therapy) Related Data Previous Rx's Medication Instructions Recorded amoxicillin-pot clavulanate 1 tab PO BID 5 Days #10 tab 05/15/20 [Augmentin] ciprofloxacin HCl 500 mg PO BID #14 tab 05/19/20 ciprofloxacin-dexamethasone 4 drp OTIC (EARS) BID 7 Days #7.5 05/19/20 [Ciprodex] ml levofloxacin 750 mg PO Q24H 7 Days #7 tab 07/27/20 metronidazole [Flagyl] 500 mg PO Q8H 7 Days #21 tab 07/27/20 cyclobenzaprine 10 mg PO TID PRN #10 tab 08/10/20 amoxicillin-pot clavulanate 1 tab PO BID #14 tab 08/15/20 [Augmentin] hydrocodone-acetaminophen 1 tab PO Q6H PRN #12 tab 08/15/20 ondansetron 4 mg PO Q8H PRN #20 tab 08/15/20 Allergies Allergy/AdvReac Type Severity Reaction Status Date / Time No Known Allergies Allergy Verified 05/19/20 17:12 Review of Systems Review of Systems Constitutional : No Weight loss, No Fever, No Chills ENT/Mouth : No sore throat, No Rhinorrhea Eyes: No Swelling, No Redness Cardiovascular : No Chest Pain, No SOB, NoEdema Respiratory : No Cough, No Sputum, No Wheezing Gastrointestinal : no Nausea, no Vomiting, no Diarrhea, positive abdominal Pain, pos Hematochezia, No Melena Genitourinary : No Dysuria, No Urinary Frequency, No Hematuria, No Urgency Musculoskeletal : No joint pain, No Myalgias, No Joint Swelling Skin : No Skin Lesions, No rash Neuro : No Weakness, No Numbness, No Dizziness, No Headache Psych : No Anxiety/Panic, No Depression Heme/Lymph: No Bruising, No Lymphadenopathy Endocrine : No Polyuria, No Polydipsia All other systems reviewed and are negative. Physical Exam Vital Signs: Vital Signs: Last Vital Signs Temp 98.2 F 08/15/20 16:00 Pulse 80 08/15/20 16:00 Resp 18 08/15/20 16:00 BP 151/86 H 08/15/20 16:00 Pulse Ox 97 08/15/20 16:00 Body Mass Index 37.2 Appearance: Alert. Oriented X3. No acute distress. Eyes: Pupils equal, round and reactive to light. ENT: Pharynx normal. Neck: Normal inspection. Neck supple. CVS: Normal heart rate and rhythm. Pulses normal. Respiratory: No respiratory distress. Breath sounds normal. Abdomen: Soft and mild LLQ ttp no rebound or guarding, brown stool no external hemorrhoid. Skin: Skin warm and dry. Normal skin color. Normal skin turgor. Extremities: No lower extremity edema. No calf ttp Neuro: Oriented X 3. No motor deficit. No sensory deficit. Course Course Course Narrative: mild diverticulitis stable H/H, will start on augmentin he as a history of noncompliance I am wondering if he did not comlete the antibiotic course MDM - Abdominal Pain MDM Narrative Medical decision making narrative: 50 yo male recent diverticulitis c/o LLQ pain no fam hx of colorectal cancer no AC therapy here with intermittent 3 episodes of bloody stool, not toxic appearing, basic labs, CT scan for diverticulitis resolution, discussed need for PCP/GI follow up for colonoscopy Lab Data Result diagrams: 08/15/20 16:16 08/15/20 16:16 Labs: Lab Results 08/15/20 08/15/20 08/15/20 Range/Units 16:16 16:16 16:16 WBC 9.1 (4.8-10.8) X10*3/uL RBC 5.75 (4.60-5.80) X10*6/uL Hgb 15.9 (14.0-18.0) g/dl Hct 48.1 (42-52) % MCV 83.7 (80-98) fL MCH 27.7 (27.0-33.0) pg MCHC 33.1 (31.0-36.0) g/dl RDW 13.3 (11.0-16.0) % Plt Count 255 (160-400) X10*3/uL MPV 11.7 (9.4-12.4) fL Immature Gran % (Auto) 0.2 (0.0-0.4) % Neut % (Auto) 53.1 (45-73) % Lymph % (Auto) 34.6 (20-40) % Prairie % (Auto) 6.7 (2-11) % Eos % (Auto) 4.5 H (0-4) % Baso % (Auto) 0.9 (0-2) % Lymph # (Auto) 3.2 (1.2-4.9) X10*3/uL [place] # (Auto) 0.6 (0.1-1.2) X10*3/uL Eos # (Auto) 0.4 (0.0-0.4) X10*3/uL Baso # (Auto) 0.1 (0.0-0.2) X10*3/uL Abs Immat Gran (auto) 0.02 (0.00-0.03) X10*3/uL Absolute Neuts (auto) 4.8 (2.0-8.3) X10*3/uL Absolute Nucleated RBC 0.000 (0.0-0.012) X10*3/uL Nucleated RBC % (auto) 0.0 (0.0-0.2) /100WBC PT 13.8 H (10.8-13.0) SEC INR 1.2 H (0.9-1.1) APTT 35.8 (24.1-38.0) SEC Sodium 140 (135-145) mmol/L Potassium 4.3 (3.3-5.1) mmol/l Chloride 105 (96-108) mmol/L Carbon Dioxide 28 (22-29) mmol/L Anion Gap 11 L (12-20) BUN 12 (9-16) mg/dL Creatinine 1.21 (0.5-1.4) mg/dL Estim Creat Clear Calc 98.8 Estimated GFR > 60 Random Glucose 113 (60-115) mg/dL Calcium 9.2 (8.4-10.2) mg/dL Total Bilirubin 0.3 (0.0-1.0) mg/dL Direct Bilirubin 0.2 (0.0-0.5) mg/dL AST 23 (5-37) U/L ALT 41 H (0-40) U/L Alkaline Phosphatase 107 (39-117) U/L Total Protein 7.3 (6.5-8.0) g/dL Albumin 4.4 (3.5-5.0) g/dL Lipase 32 (8-78) U/L Urine Color Urine Appearance Urine pH (5.0-8.0) Ur Specific [place] (1.005-1.025) Urine Protein (NEG-TRACE) MG/DL Urine Glucose (UA) (NEG) MG/DL Urine Ketones (NEG) MG/DL Urine Blood (NEG) Urine Nitrite (NEG) Ur Leukocyte Esterase (NEG) Stool Occult Blood (NEG) 08/15/20 08/15/20 Range/Units 16:16 16:16 WBC (4.8-10.8) X10*3/uL RBC (4.60-5.80) X10*6/uL Hgb (14.0-18.0) g/dl Hct (42-52) % MCV (80-98) fL MCH (27.0-33.0) pg MCHC (31.0-36.0) g/dl RDW (11.0-16.0) % Plt Count (160-400) X10*3/uL MPV (9.4-12.4) fL Immature Gran % (Auto) (0.0-0.4) % Neut % (Auto) (45-73) % Lymph % (Auto) (20-40) % [place] % (Auto) (2-11) % Eos % (Auto) (0-4) % Baso % (Auto) (0-2) % Lymph # (Auto) (1.2-4.9) X10*3/uL [place] # (Auto) (0.1-1.2) X10*3/uL Eos # (Auto) (0.0-0.4) X10*3/uL Baso # (Auto) (0.0-0.2) X10*3/uL Abs Immat Gran (auto) (0.00-0.03) X10*3/uL Absolute Neuts (auto) (2.0-8.3) X10*3/uL Absolute Nucleated RBC (0.0-0.012) X10*3/uL Nucleated RBC % (auto) (0.0-0.2) /100WBC PT (10.8-13.0) SEC INR (0.9-1.1) APTT (24.1-38.0) SEC Sodium (135-145) mmol/L Potassium (3.3-5.1) mmol/l Chloride (96-108) mmol/L Carbon Dioxide (22-29) mmol/L Anion Gap (12-20) BUN (9-16) mg/dL Creatinine (0.5-1.4) mg/dL Estim Creat Clear Calc Estimated GFR Random Glucose (60-115) mg/dL Calcium (8.4-10.2) mg/dL Total Bilirubin (0.0-1.0) mg/dL Direct Bilirubin (0.0-0.5) mg/dL AST (5-37) U/L ALT (0-40) U/L Alkaline Phosphatase (39-117) U/L Total Protein (6.5-8.0) g/dL Albumin (3.5-5.0) g/dL Lipase (8-78) U/L Urine Color DARK YELLOW Urine Appearance CLEAR Urine pH 5.5 (5.0-8.0) Ur Specific [place] >= 1.030 H (1.005-1.025) Urine Protein TRACE (NEG-TRACE) MG/DL Urine Glucose (UA) NEG (NEG) MG/DL Urine Ketones NEG (NEG) MG/DL Urine Blood NEG (NEG) Urine Nitrite NEG (NEG) Ur Leukocyte Esterase NEG (NEG) Stool Occult Blood NEG (NEG) Discharge Plan Discharge Clinical Impression: Hematochezia, Diverticulitis Patient Disposition: Home, Self-Care Instructions: Diverticulitis (ED), Rectal Bleeding (ED) Additional Instructions: return to ED for any worsening symptoms or concerns avoid aspirin, motrin, aleve, ibuprofen, TYLENOL is SAFE Prescriptions: New hydrocodone-acetaminophen 5-325 mg tablet 1 tab PO Q6H PRN (Reason: pain) Qty: 12 RF: 0 ondansetron 4 mg tablet,disintegrating 4 mg PO Q8H PRN (Reason: nausea and vomiting) Qty: 20 RF: 0 amoxicillin-pot clavulanate [Augmentin] 875-125 mg tablet 1 tab PO BID Qty: 14 RF: 0 No Action amoxicillin-pot clavulanate [Augmentin] 875-125 mg tablet 1 tab PO BID 5 Days Qty: 10 RF: 0 levofloxacin 750 mg tablet 750 mg PO Q24H 7 Days Qty: 7 RF: 0 metronidazole [Flagyl] 500 mg tablet 500 mg PO Q8H 7 Days Qty: 21 RF: 0 cyclobenzaprine 10 mg tablet 10 mg PO TID PRN (Reason: muscle spasm) Qty: 10 RF: 0 ciprofloxacin-dexamethasone [Ciprodex] 0.3-0.1 % drops,suspension 4 drp otic (ears) BID 7 Days Qty: 7.5 RF: 0 ciprofloxacin HCl 500 mg tablet 500 mg PO BID Qty: 14 RF: 0 Referrals: Aye Don MD [Physician] - 2 weeks (call to schedule colonoscopy for rectal bleeding) Physician,[place] [Primary Care Provider] - 3 days (please call your primary care doctor) Stand Alone Forms: Work/School Release [facility] Past Medical History Attestation statement: The following information was validated with the patient. Medical History (Updated 08/15/20 @ 17:13 by Josiane Jeff DO) Diabetic acidosis, type II Diverticulitis HTN (hypertension) Social History Social History Alcohol intake: current Alcohol intake frequency: holidays/special occasions only Smoking Status: Never smoker Tobacco Type: Cigarette Packs Per Day: 1 Cigarettes Per Day: 20.0 Use of substances other than those prescribed or required for medical reasons: Yes Substance Use Type: Marijuana Substance Use Frequency: Occasionally Advance Directives: No Advance Directives Information Provided: No
[2020-08-15 16:24] LABS: Basophils Absolute Auto 0.1 X10*3/uL (0.0-0.2); Basophils Percent Auto 0.9 % (0-2); Eosinophils Absolute Auto 0.4 X10*3/uL (0.0-0.4); Eosinophils Percent Auto 4.5 % (0-4); Hematocrit 48.1 % (42-52); Hemoglobin 15.9 g/dl (14.0-18.0); Imm Gran Abs Auto 0.02 X10*3/uL (0.00-0.03); Imm Gran Pct Auto 0.2 % (0.0-0.4); Lymphocytes Absolute Auto 3.2 X10*3/uL (1.2-4.9); Lymphocytes Percent Auto 34.6 % (20-40); Mean Corpuscular HGB Conc 33.1 g/dl (31.0-36.0); Mean Corpuscular Hemoglobin 27.7 pg (27.0-33.0); Mean Corpuscular Volume 83.7 fL (80-98); Mean Platelet Volume 11.7 fL (9.4-12.4); Monocytes Absolute Auto 0.6 X10*3/uL (0.1-1.2); Monocytes Percent Auto 6.7 % (2-11); Neutrophils Absolute Auto 4.8 X10*3/uL (2.0-8.3); Neutrophils Percent Auto 53.1 % (45-73); Platelet Count 255 X10*3/uL (160-400); Red Blood Count 5.75 X10*6/uL (4.60-5.80); Red Cell Distribution Width 13.3 % (11.0-16.0); White Blood Count 9.1 X10*3/uL (4.8-10.8)
[2020-08-15 16:26] LABS: Glucose Urine UA NEG (NEG); Leukocyte Esterase Urine NEG (NEG); MANUAL DIFF FLAG NO; Nitrite Urine NEG (NEG); PH 5.5 (5.0-8.0); Specific Gravity - Urine >= 1.030 (1.005-1.025); Urine Blood NEG (NEG); Urine Ketones NEG (NEG); Urine Protein TRACE MG/DL (NEG-TRACE)
[2020-08-15 16:28] LABS: Appearance Urine CLEAR; Color Urine DARK YELLOW
[2020-08-15 16:29] LABS: OBS Int Ctl Valid YES; OBS1 NEG (NEG)
[2020-08-15 16:35] LABS: INTERNATIONAL NORM RATIO 1.2 (0.9-1.1); Prothrombin Time 13.8 SEC (10.8-13.0)
[2020-08-15 16:37] LABS: Partial Thromboplastin Time 35.8 SEC (24.1-38.0)
[2020-08-15 16:44] LABS: Alanine Aminotransferase 41 U/L (0-40); Albumin Level 4.4 g/dL (3.5-5.0); Alkaline Phosphatase 107 U/L (39-117); Anion Gap 11 (12-20); Aspartate Amino Transferase 23 U/L (5-37); Bilirubin Direct 0.2 mg/dL (0.0-0.5); Bilirubin Total 0.3 mg/dL (0.0-1.0); Blood Urea Nitrogen 12 mg/dL (9-16); Calcium 9.2 mg/dL (8.4-10.2); Carbon Dioxide 28 mmol/L (22-29); Chloride 105 mmol/L (96-108); Creatinine Clr Calc Pharmacy 98.8; Estimated Glomerular Filt Rate > 60; Glucose Random 113 mg/dL (60-115); Lipase 32 U/L (8-78); Potassium 4.3 mmol/l (3.3-5.1); Sodium 140 mmol/L (135-145); Total Protein 7.3 g/dL (6.5-8.0)
[2020-08-15] MEDS: HYDROcodone Bit/Acetam 5/325 TABLET 1 TAB PO (17:23)
[2020-08-15] MEDS: Amoxicillin/Potassium Clav 875 MG TABLET PO (17:23)
--- NOTE | 2020-08-15 17:26 | PC.NURSE ---
pt medicated per order
== END 2020-08-15 17:27 | disposition home or self-care (01) ==
PROVIDERS: Emergency Provider Emergency Medicine
DX: K92.1 Melena (principal); K57.32 Diverticulitis of large intestine without perforation or abscess without bleeding; K76.0 Fatty (change of) liver, not elsewhere classified; E11.9 Type 2 diabetes mellitus without complications; I10 Essential (primary) hypertension; F17.210 Nicotine dependence, cigarettes, uncomplicated
CPT/HCPCS: 36415; 74176; 80048; 80076; 81003; 82272; 83690; 85025; 85610; 85730; 99284

== ENCOUNTER → 2020-09-10 09:40 | Outpatient (BNVA) | payer MEDICAID, SELFPAY | PROVIDERS: PCP Internal Medicine; Visit Provider Nurse Practitioner ==

== ENCOUNTER 2022-10-14 12:42 | Outpatient (REF) | payer MEDICAID, SELFPAY ==
--- NOTE | ~2022-10-14 | XR_ITS ---
EXAMINATION: XR SHOULDER, RIGHT CLINICAL INFORMATION: Shoulder pain COMPARISON: None TECHNIQUE: Right shoulder is imaged in 3 views. FINDINGS: No fracture, dislocation, destructive process. The glenohumeral joint is normal. The acromioclavicular alignment is normal. There are degenerative changes acromioclavicular joint with joint narrowing and superior to inferior spurring. No visible rotator cuff calcifications. XR/XR shoulder RT min 2V IMPRESSION: Degenerative changes acromioclavicular joint. No visible rotator cuff calcifications.
== END 2022-10-14 12:43 | disposition home or self-care (01) ==
LOC: HO.HOSX 12:42
PROVIDERS: Visit Provider Physician Assistant
DX: M75.101 Unspecified rotator cuff tear or rupture of right shoulder, not specified as traumatic (principal)
CPT/HCPCS: 20610; 73030; 99202; J1020

== ENCOUNTER → 2022-11-21 08:06 | Outpatient (BNVA) | payer MEDICAID, SELFPAY | PROVIDERS: PCP Internal Medicine; Visit Provider Physician Assistant | DX: M75.101 Unspecified rotator cuff tear or rupture of right shoulder, not specified as traumatic (principal) | CPT/HCPCS: 99212 ==

== ENCOUNTER 2023-02-06 16:00 | Outpatient (RCR) | payer MEDICAID, SELFPAY ==
--- NOTE | 2022-12-09 11:55 | MHC.PT.EP ---
[facility] [place] Office [place] [facility] [place] Office [address] [phone] F: [phone] F: [phone] F: [phone] F: [phone] Physical Therapy Plan of Care Date of Evaluation: Date of Surgery: NA Diagnosis: Unspecified rotator cuff tear or rupture of R shoulder Assessment: Alan is a 52 year old male who is referred to PT for Unspecified rotator cuff tear or rupture of R shoulder . He reports of having sudden onset of R shoulder pain about 2 months back following a fall- 6 feet deep. He landed on his R shoulder. Fracture has been ruled out. He initially had pain all over the chest and back- those symptoms have resolved with time. On PT examination he presented with constant throbbing pain worse with motion, 9/10 pain, TTP over medial border of scapula, R shoulder joint line, R pec major, decreased AROM, decreased shoulder and scap muscle strength and altered posture. Due to these impairments he has difficulty performing his ADLS. Modifies by using L UE. He would benefit from skilled PT to address the aforementioned impairments and improve tolerance to functional activities. Frequency and Duration: The patient will be seen 2/week for 6 weeks Short Term Goals: 1. Pt will have 50% decrease in pain which will enable him to tolerate sitting with arm by his side for 30 minutes in 2 weeks. 2. Pt will be able to move R shoulder through all planes of motion with pain no more than 2/10 which will enable him to dress his upper body without modifications in 4 weeks. Residential Goals: 1. Pt will demonstrate an increase in muscle strength by 1 grade which will enable him to perform all ADLS without modifications in 5 weeks. 2. Pt will be independent with all HEP for symptom management and maintenance following d/c in 6 weeks. Treatment Plan: Modalities to reduce pain, spasms and effusion. Manual therapy to restore motion and function. Therapeutic exercise to improve strength and flexibility. Neuromuscular re-education for posture and balance. Therapeutic activities to return to functional activities of daily living. Electronically signed by: Kristina Mcintosh PT DPT Please sign and return to therapist. Thank you for your referral.
--- NOTE | 2023-02-07 09:36 | MHC.PT.DC ---
[facility] [place] Office [place] Office [place] Office [address] [phone] F: [phone] F: [phone] F: [phone] F: [phone] Physical Therapy Discharge Report Diagnosis: Unspecified rotator cuff tear or rupture of R shoulder Date of Surgery: NA Date of Evaluation: 12/09/22 Date of Discharge: 02/07/23 Treatments to Date: 12 Cancellations to Date: 1 No Shows to Date: 1 Discharge Status: Improved Function Independent with HEP Recommend MD Follow-up Discharge Summary: Alan completed 12 PT visits. He made 50% improvements with PT. He however continues to present with pain with shoulder ER and flexion. Pt recommended to follow with MD for further testing to identify the cause of pain. He is therefore being d/c from PT. Alan was in agreement with the plan. Electronically signed by: Kristina Mcintosh PT DPT Please sign and return to therapist. Thank you for your referral.
== END 2023-02-07 09:36 | disposition home or self-care (01) ==
LOC: HO.PT 16:00
PROVIDERS: PCP Internal Medicine; Visit Provider Physician Assistant
DX: M75.101 Unspecified rotator cuff tear or rupture of right shoulder, not specified as traumatic (principal)
CPT/HCPCS: 97035; 97110; 97140; 97161; 97530

== ENCOUNTER 2023-03-13 07:19 | Outpatient (REF) | payer MEDICAID, SELFPAY ==
--- NOTE | ~2023-03-13 | MR_ITS ---
EXAMINATION: MR SHOULDER WITHOUT CONTRAST, RIGHT CLINICAL INFORMATION: Right shoulder pain. COMPARISON: Radiographs 10/14/2022. TECHNIQUE: MRI of the shoulder without contrast was performed on a high-field scanner. FINDINGS: ROTATOR CUFF: The supraspinatus and infraspinatus tendons are completely torn and retracted to the level of the glenoid. Mild subscapularis tendinosis. Mild supraspinatus muscle atrophy. Moderate infraspinatus muscle atrophy with mild fatty infiltration. BICEPS: Normal. CORACOACROMIAL ARCH: The undersurface of the acromion is curved with a prominent anterior subacromial spur. Mild acromioclavicular osteoarthritis. Probable remote, healed fracture of the distal clavicle with hypertrophic bone formation. LABRUM/CAPSULE: Normal. GLENOHUMERAL JOINT/MARROW: The humeral head is superiorly subluxed and nearly abuts the undersurface of the acromion. Mild degenerative spurring along the greater tuberosity. There is a small joint effusion. MR/MR shoulder RT wo con IMPRESSION: 1. Completely torn and retracted supraspinatus and infraspinatus tendons with [id number] muscle atrophy/fatty infiltration. 2. Prominent anterior subacromial spur. 3. Mild acromioclavicular and glenohumeral osteoarthritis with a small joint effusion.
== END 2023-03-13 07:20 | disposition home or self-care (01) ==
LOC: HO.MRI 07:19
PROVIDERS: PCP Internal Medicine; Visit Provider Physician Assistant
DX: M75.101 Unspecified rotator cuff tear or rupture of right shoulder, not specified as traumatic (principal)
CPT/HCPCS: 73221

== ENCOUNTER 2023-03-22 09:49 | Outpatient (REF) | payer MEDICAID, SELFPAY ==
[2023-03-22 14:49] LABS: Estimated Average Glucose 197 mg/dL; Hemoglobin A1c % 8.5 %
[2023-03-22 15:19] LABS: Alanine Aminotransferase 48 U/L (0-40); Albumin Level 4.6 g/dL (3.5-5.0); Alkaline Phosphatase 99 U/L (39-117); Anion Gap 15 (12-20); Aspartate Amino Transferase 26 U/L (5-37); Bilirubin Total 0.5 mg/dL (0.0-1.0); Blood Urea Nitrogen 17 mg/dL (9-16); Calcium 9.8 mg/dL (8.4-10.2); Carbon Dioxide 24 mmol/L (22-29); Chloride 104 mmol/L (96-108); Cholesterol 182 mg/dL; Estimated Glomerular Filt Rate 40; Glucose Fasting 221 mg/dL (60-99); HDL Cholesterol 36 mg/dL; LDL Cholesterol Calculated 110 mg/dl; Sodium 139 mmol/L (135-145); Total Protein 7.9 g/dL (6.5-8.0); Triglycerides 183 mg/dL
== END 2023-03-22 09:50 | disposition home or self-care (01) ==
LOC: HO.CHCLDS 09:49
PROVIDERS: Visit Provider Internal Medicine
DX: I10 Essential (primary) hypertension (principal)
CPT/HCPCS: 36415; 80053; 80061; 83036

== ENCOUNTER 2023-03-30 11:38 | Outpatient (AMB) | payer MEDICAID, SELFPAY ==
--- NOTE | 2023-03-30 11:40 | MHC.OFFVIS ---
Intake Intake Visit Reasons: TELE- right shoulder MRI review Intake Note: Alan is a 53 year old male who presents today for a MRI review for his right shoulder. Allergies No Known Allergies Allergy (Verified 03/30/23 11:41) HPI TELE- right shoulder MRI review HPI Details 53-year-old male who presents in the office today for a follow up of right shoulder pain and review of his MRI. [facility] Medical History Diabetic acidosis, type II Diverticulitis HTN (hypertension) Family History Mother Diabetes HTN (hypertension) Glaucoma Father No problems noted. Maternal Grandmother Glaucoma Diabetes HTN (hypertension) Heart attack Maternal Uncle Glaucoma HTN (hypertension) Diabetes AIDS Social History Household Members: None Alcohol intake: never Cigarette Packs Per Day: 1 Cigarettes Per Day: 20.0 Substance Use Type: Marijuana Review of Systems Const All systems reviewed & are unremarkable except as noted in HPI and below Physical Exam Extrem Other: Deferred due telehealth visit. Assessment & Plan Assessment & Plan (1) Right rotator cuff tear: Code(s): M75.101 - Unspecified rotator cuff tear or rupture of right shoulder, not specified as traumatic Plan Mr. Scott is a 53-year-old male who presents in the office today for a follow up of right shoulder pain and review of his MRI. The patient will follow up with Dr. Blancas for possible rotator cuff repair. An appointment has been scheduled. Follow up will be with Dr. Blancas, or sooner if needed. MRI of the right shoulder, obtained on 03/13/2023, revealed: 1. Completely torn and retracted supraspinatus and infraspinatus tendons with [id number] muscle atrophy/fatty infiltration. 2. Prominent anterior subacromial spur. 3. Mild acromioclavicular and glenohumeral osteoarthritis with a small joint effusion. Patient Instructions: Scribed for Geneva Oconnell PA-C by Adriana Gordno medical laboratory manager, on 03/30/2023 at 11:41 am, EST. Telehealth Telehealth Location of provider rendering services: practice address Location of patient: address on file Patient Identification confirmed using: Name, : Yes Telehealth method: voice only Patient verbally consented to treatment: Yes Patient verbally consented to billing insurance company: Yes Patient informed of any privacy concerns related to visit: Yes Minutes spent on Phone/Video with Pt.: 5 Coding Level of Care Code Tele Est Pt Level 3 (82311) Diagnoses Right rotator cuff tear M75.101
== END 2023-03-30 11:58 | disposition home or self-care (01) ==
LOC: HO.HOS 11:38
PROVIDERS: PCP Internal Medicine; Visit Provider Physician Assistant
DX: M75.101 Unspecified rotator cuff tear or rupture of right shoulder, not specified as traumatic (principal)
CPT/HCPCS: 99213

== ENCOUNTER → 2023-03-30 11:38 | Outpatient (BNVA) | payer MEDICAID, SELFPAY | PROVIDERS: PCP Internal Medicine; Visit Provider Physician Assistant ==

== ENCOUNTER 2023-04-10 12:54 | Outpatient (AMB) | payer OTHER, MEDICAID, SELFPAY ==
--- NOTE | 2023-04-10 12:59 | A.OFFVIS_ITS ---
Intake Vital Signs 04/10/23 13:03 Height 5 ft 11 in Weight 260 lb BMI 36.3 Intake Visit Reasons: EP, Discuss R RTC repair surgery Intake Note: Alan is a 53 year old right hand dominant male who presents today for a follow up of his right shoulder to discuss surgical treatment options. Allergies No Known Allergies Allergy (Verified 03/30/23 11:41) HPI EP, Discuss R RTC repair surgery HPI Details Alan is a 53 year old man who presents to discuss treatment for his right RTC tear. This is a workers comp injury. He complains of pain with daily activity, worse with overhead activity & at night. He describes his pain as throbbing and severe at times. He found limited relief from a steroid injection on 10/14/22. He cannot lift his arm above shoulder level without using his other hand for assistance. He does not feel he is able to use his arm for ADLs or work activities. FORMERLY [facility] Medical History Diabetic acidosis, type II Diverticulitis HTN (hypertension) Family History Mother Diabetes HTN (hypertension) Glaucoma Father No problems noted. Maternal Grandmother Glaucoma Diabetes HTN (hypertension) Heart attack Maternal Uncle Glaucoma HTN (hypertension) Diabetes AIDS Social History Household Members: None Alcohol intake: never Cigarette Packs Per Day: 1 Cigarettes Per Day: 20.0 Substance Use Type: Marijuana Review of Systems Const All systems reviewed & are unremarkable except as noted in HPI and below Physical Exam Vital Signs: BMI result Body Mass Index 36.3 Const General: no acute distress, alert and awake Orientation/consciousness: patient oriented x3 HEENT Head: Yes normocephalic and Yes atraumatic Eyes EOM: EOMs intact bilaterally Resp Effort & Inspection: normal respiratory effort and able to speak in complete sentences Cardio Jugular venous distension: no JVD Skin General skin exam: turgor normal Rashes: no rashes Neuro General: patient oriented x3 Extrem Other: Right Shoulder: Pain with AB and limited in active abduction to 70 deg without scapular recruitment 4/5 empty can Psych Appearance: grossly normal Affect: normal affect Attitude: cooperative Results Reviewed Results Reviewed: I personally reviewed relevant radiographs. 1. Completely torn and retracted supraspinatus and infraspinatus tendons with [id number] muscle atrophy/fatty infiltration. ? 2. Prominent anterior subacromial spur. ? 3. Mild acromioclavicular and glenohumeral osteoarthritis with a small joint effusion. Assessment & Plan Assessment & Plan (1) Right rotator cuff tear: Code(s): M75.101 - Unspecified rotator cuff tear or rupture of right shoulder, not specified as traumatic Plan: This is a 53 year old man with a full-thickness tear of the supraspinatus & infraspinatus, with retraction, of the right shoulder.This is a workers comp injury. He has pain with daily activity, worse with overhead activity & at night. He has failed conservative treatment options, feels limited in his ADLs, and feels his QOL is diminished. I discussed his diagnosis, treatment options, and MRI with him. I recommend a right shoulder RTC repair. I discussed the risks, benefits, and alternatives including, but not limited to, the risk of pain, infection, stiffness, need for further surgery as well as potential medical complications such as blood clots, pulmonary embolism and cardiac complications. The primary risk is that the tear is nbot repairable. We discussed this. He understands and we will proceed forward accordingly. I discussed the recovery timeline and process as well as the importance of PT. Alan is a good candidate for this surgery, and he wishes to proceed with this decision. He will speak with the museum service scheduler this procedure. I prescribed NSAIDs for him and recommend he avoid any heavy lifting or overhead activities at this time. (2) Diabetes: Code(s): E11.9 - Type 2 diabetes mellitus without complications Plan Scribed for Delroy Blancas MD by Galdino Garcia, claim review medical director, on 04/10/23 at 1:35 PM, EST. Medications: New naproxen (EC-Naprosyn) 500 mg PO BID PRN 60 tabs 0RF pain Coding Level of Care Code Est Pt Level 4 (14596) Diagnoses Right rotator cuff tear M75.101 Diabetes E11.9
[2023-04-10 13:03] VITALS: BMI 36.3
== END 2023-04-10 13:48 | disposition home or self-care (01) ==
PROVIDERS: PCP Internal Medicine; Visit Provider Orthopaedic Surgery
DX: S46.011A Strain of muscle(s) and tendon(s) of the rotator cuff of right shoulder, initial encounter (principal)
CPT/HCPCS: 99214

== ENCOUNTER → 2023-04-10 12:54 | Outpatient (BNVA) | payer MEDICAID, SELFPAY | PROVIDERS: PCP Internal Medicine; Visit Provider Orthopaedic Surgery | DX: M75.121 Complete rotator cuff tear or rupture of right shoulder, not specified as traumatic (principal); M19.011 Primary osteoarthritis, right shoulder; E11.9 Type 2 diabetes mellitus without complications | CPT/HCPCS: 99212 ==

== ENCOUNTER 2023-05-10 07:55 | Day surgery (SDC) | payer MEDICAID, SELFPAY ==
[2023-05-08 11:20] VITALS: BMI 36.3
--- NOTE | 2023-05-09 09:02 | HO.ANESPROP2 ---
Documented by User: Aishwarya Marquez NP 05/09/23 09:03 HPI - Anesthesia Eval Consult details Narrative: 53yo M for Right Shoulder Rotator Cuff Repair PMFSH Active Problems Active Problems: All Active Problems (Updated 03/30/23 @ 11:46 by Adriana Gordon) Right rotator cuff tear (Acute) Painful arc syndrome of right shoulder (Acute) Diverticulitis (Acute) Hypertension (Acute) Diabetes (Acute) Past Medical History Medical History Diverticulitis Diabetic acidosis, type II HTN (hypertension) Family History Family History Mother Diabetes HTN (hypertension) Glaucoma Father No problems noted. Maternal Grandmother Glaucoma Diabetes HTN (hypertension) Heart attack Maternal Uncle Glaucoma HTN (hypertension) Diabetes AIDS Surgical History Surgical History No pertinent past surgical history Social History Social History Household Members: None Alcohol intake: never Cigarette Packs Per Day: 1 Cigarettes Per Day: 20.0 Substance Use Type: Marijuana Advance Directives: No Advance Directives Information Provided: Yes Meds Allergies Allergy/AdvReac Type Severity Reaction Status Date / Time No Known Allergies Allergy Verified 05/10/23 09:11 Home Medications Medication Instructions Recorded Confirmed Last Taken Type atorvastatin 20 mg tablet 20 mg PO DAILY 04/10/23 05/10/23 05/10/23 History hydralazine 50 mg tablet 50 mg PO BID 04/10/23 05/10/23 05/10/23 History losartan 100 mg tablet 100 mg PO DAILY 04/10/23 05/10/23 05/10/23 History metformin 500 mg tablet 500 mg PO BID 04/10/23 05/10/23 Unknown History risperidone 0.25 mg tablet 0 mg PO DAILY 04/10/23 05/10/23 05/10/23 History Exam Exam Date and Time: May 09, 2023 0902 Height,Weight and Vital Signs: Height 5 ft 11 in Weight 117.934 kg Pertinent Lab Results Pertinent Lab Results: Laboratory Tests 03/22/23 09:53 Sodium 139 Potassium 4.0 Chloride 104 Carbon Dioxide 24 BUN 17 H Creatinine 1.79 H Assessment and Plan Assessment Anesthesia Assessment: Chart Reviewed Documented by User: Jen Giordano MD 05/10/23 09:30 PMFSH Past Medical History Medical History Diverticulitis Diabetic acidosis, type II HTN (hypertension) Family History Family History Mother Diabetes HTN (hypertension) Glaucoma Father No problems noted. Maternal Grandmother Glaucoma Diabetes HTN (hypertension) Heart attack Maternal Uncle Glaucoma HTN (hypertension) Diabetes AIDS Family history of problems with anesthesia: No Surgical History Surgical History No pertinent past surgical history History of Problems with Anesthesia: No Social History Social History (Reviewed 05/10/23 @ :28 by Jen Giordano MD) Household Members: None Alcohol intake: never Cigarette Packs Per Day: 1 Cigarettes Per Day: 20.0 Substance Use Type: Marijuana Advance Directives: No Advance Directives Information Provided: Yes Meds Allergies Allergy/AdvReac Type Severity Reaction Status Date / Time No Known Allergies Allergy Verified 05/10/23 09:11 Home Medications Medication Instructions Recorded Confirmed Last Taken Type atorvastatin 20 mg tablet 20 mg PO DAILY 04/10/23 05/10/23 05/10/23 History hydralazine 50 mg tablet 50 mg PO BID 04/10/23 05/10/23 05/10/23 History losartan 100 mg tablet 100 mg PO DAILY 04/10/23 05/10/23 05/10/23 History metformin 500 mg tablet 500 mg PO BID 04/10/23 05/10/23 Unknown History risperidone 0.25 mg tablet 0 mg PO DAILY 04/10/23 05/10/23 05/10/23 History Exam Airway Mallampati Class: II TM Dist: >3cm Neck ROM: Limited Heart: rrr Lungs: cta Assessment and Plan Assessment Anesthesia Assessment: Anesthesia Plan Discussed and Smoking Cess. Discussed Final Anesthetic Review Family History of Problems with Anesthesia: No History of Problems with Anesthesia: No NPO: Yes ASA Class: III Final Preanesthetic Review: No Changes in Pt Med Stat, Meds/Allgs Chart Reviewed, Consent Obtained/Reviewed and Anes Risks/Benef Reviewed Patient Risk: Intermediate Procedure Risk: Intermediate Anesthetic Plan Anesthetic Plan: GA and Regional Block Disposition: Standard PACU
[2023-05-10] VITALS (8 sets, daily range): BP systolic 121–142; BP diastolic 71–102; PULSE 72–94; RESP 16–18; TEMP 36.1–36.7; O2SAT 94–98; BMI 35.8
[2023-05-10 09:30] LABS: Glucose, Whole Blood 240 mg/dL (60-115)
[2023-05-10] MEDS: Albuterol Sulfate (0.083%) 2.5 MG/3 ML VIAL.NEB INHALE (09:39)
[2023-05-10] MEDS: Lactated Ringers 1,000 ML 100 ML IVCONT (11:05)
--- NOTE | 2023-05-10 11:09 | MHC.SHP ---
Pre-Procedural Eval Section A Date of Service: 05/10/23 The patient is an INPATIENT: No Changes since office visit: No Cold of Flu in the past 2 weeks, No New Medical Problems, No Changes in Medication and No Patient answered all questions The History & Physical has been completed within 30 days and I have reviewed it.: Yes Section B Chief Complaint: Unspecified rotator cuff tear or rupture of right Allergies: Allergies Allergy/AdvReac Type Severity Reaction Status Date / Time No Known Allergies Allergy Verified 05/10/23 09:11 Plan I have reviewed the history and physical and performed a pertinent physical examination on my patient. No changes have occurred unless specified. Time Spent With Patient Time: Total time managing care of this patient today ____ minutes.
--- NOTE | 2023-05-10 13:38 | PM.OP ---
Brief Operative Note Date of Service: 05/10/23 Pre-op diagnosis: Right RTC tear Post-op diagnosis: same Procedure: Right rtc repair with bioinductive implant Implants: Inge michaels Surgeon: Delroy Blancas MD Anesthesia: GETA and regional Was an Administrative Aide used for this Procedure?: Yes Administrative Aide: Geneva Oconnell Estimated blood loss (mL): 25 IV fluids (mL): 800 Pathology: none sent Condition: stable Disposition: PACU
--- NOTE | 2023-05-11 11:43 | W.PM.OPN ---
Operative Note Operative Note Date of Service: 05/10/23 Narrative: Date of Service: 05/10/23 Pre-op diagnosis: Right RTC tear Post-op diagnosis: same Procedure: Right rtc repair with bioinductive implant Implants: Inge michaels Surgeon: Delroy Blancas MD Anesthesia: GETA and regional Was an Cd Manufacturing Supervisor used for this Procedure?: Yes Cd Manufacturing Supervisor: Geneva Oconnell Estimated blood loss (mL): 25 IV fluids (mL): 800 Pathology: none sent Condition: stable Disposition: PACU Procedure in detail: Patient was brought to the operating room and placed the the beach chair position. All bony prominences were well padded and the limb was prepped and draped in standard sterile fashion. A time out was called to identify proper site, proper procedure and proper surgeon. IV antibiotics per weight were administered. I insufflated the joint with saline and a 30 degree arthroscope was placed. I established an outside- in anterior portal just distal to the biceps tendon. I then began my inspection of the glenohumeral joint. There was a degenerative SLAP tear at the biceps anchor ( Type 1). There were minimal cartilage changes at the inferior glenoid without humeral head changes. There was a full thickness retracted RTC tear. The subcapularis was intact. I debrided the loose cartilage of the glenoid and the degenerative labral tearing. I then removed the trochar and entered the subacromial space. A direct lateral portal was then established and I performed a bursectomy. The cuff was then examined. There was a full thickness tear of the supraspinatus with retraction. The infraspinatus was nominally intact but beaten up and partially torn. The tear was NOT mobile. I released the anterior aspect of the retracted suprspiantus and then placed 2 side to side inntrsubstance sutures throguh the medial area orf retraction. This colsed down the emtpy space and then I placed one medial row double loaded anchor and poassed these through the supraspinatus and infraspiantus converging the tissue over the bony are just adjacent to the articular cartilage of the HH. I then brought these 4 limbs to a lateral 5.5 knotless anchor and was please with the coverage. This was improved with the side to side convergence sutures then brought to an second lateral anchor. I added two looped sutures to the anterior supraspinatus and was able to recreate coverage of the humeral head without tesnion. The tissue quality was adequate but not ideal and so a large regeneten bio inductive collagen graft was placed over top of the repair. This was held in place with PEEK yamil medially and 2 PEEK bone anchors laterally. Once I was satisfied with the repair final images were captured and I removed all instrumentation. Portals were closed with nylon. Patient was placed in an abduction sling, extubated and brought to the recovery room in stable condition. There were no known complications. Large [facility] repair protocol
== END 2023-05-10 14:20 | disposition home or self-care (01) ==
LOC: HO.SSS 07:56
PROVIDERS: PCP Internal Medicine; Visit Provider Orthopaedic Surgery
PROC: (CPT 29827; principal; 2023-05-10 10:50)
DX: M75.101 Unspecified rotator cuff tear or rupture of right shoulder, not specified as traumatic (principal); E11.9 Type 2 diabetes mellitus without complications; I10 Essential (primary) hypertension; K57.92 Diverticulitis of intestine, part unspecified, without perforation or abscess without bleeding; F12.90 Cannabis use, unspecified, uncomplicated; F17.210 Nicotine dependence, cigarettes, uncomplicated; Z79.84 Long term (current) use of oral hypoglycemic drugs; Z79.899 Other long term (current) drug therapy
CPT/HCPCS: 29827; 82947; C1713; J0690; J1100; J2371; J2405; J2795; J3010

== ENCOUNTER → 2023-05-10 07:55 | Outpatient (BNV) | payer MEDICAID, SELFPAY | PROVIDERS: PCP Internal Medicine; Visit Provider Orthopaedic Surgery | DX: Z48.02 Encounter for removal of sutures (principal); S43.431A Superior glenoid labrum lesion of right shoulder, initial encounter; S46.011A Strain of muscle(s) and tendon(s) of the rotator cuff of right shoulder, initial encounter | CPT/HCPCS: 29827 ==

== ENCOUNTER 2023-05-16 12:22 | Outpatient (AMB) | payer OTHER, MEDICAID, SELFPAY ==
--- NOTE | 2023-05-16 13:12 | MHC.OFFVIS ---
Intake Intake Visit Reasons: PO- Rt RTC Repair 05/10/23 NE Intake Note: Alan is a 53 year old right hand dominant male who presents today for a post op appointment s/p right RTC repair 05/10/23 NE. Patient reports he is doing well but still having pain like a 7/10 on the pain scale. Allergies No Known Allergies Allergy (Verified 05/16/23 13:15) HPI PO- Rt RTC Repair 05/10/23 NE HPI Details 53-year-old right hand dominant male who presents in the office today 6 days status post right rotator cuff repair with bioinductive implant, which was performed on 05/10/[address] Blancas. The patient reports he is doing well but still having pain. He rates his pain a 7/10 while in the office today. [facility] Medical History Diverticulitis Diabetic acidosis, type II HTN (hypertension) Surgical History No pertinent past surgical history Family History Mother Diabetes HTN (hypertension) Glaucoma Father No problems noted. Maternal Grandmother Glaucoma Diabetes HTN (hypertension) Heart attack Maternal Uncle Glaucoma HTN (hypertension) Diabetes AIDS Social History Household Members: None Alcohol intake: never Patient Tobacco Use Status: Current everyday Tobacco user Tobacco use type: Cigarette Cigarette Packs Per Day: 0.5 Cigarettes Per Day: 10.0 Years Smoked: 40 Substance Use Type: Marijuana Review of Systems Const All systems reviewed & are unremarkable except as noted in HPI and below Physical Exam Const General: cooperative, healthy appearing and no acute distress Resp Effort & Inspection: normal respiratory effort and able to speak in complete sentences Cardio Rate: regular rate Peripheral pulses: Peripheral pulses 2+ throughout GI Palpation (GI): Soft to palpation Skin Lesions: no lesions Rashes: no rashes Extrem Other: Right shoulder: Incision site is clean, dry, and intact. Sutures intact. No surrounding erythema or drainage. No signs of infection. Forward flexion and abduction to 30 degrees. NVI. Assessment & Plan Assessment & Plan (1) Status post right rotator cuff repair: Code(s): Z98.890 - Other specified postprocedural states (2) Diabetes: Code(s): E11.9 - Type 2 diabetes mellitus without complications Plan Mr. Scott is a 53-year-old right hand dominant male who presents in the office today 6 days status post right rotator cuff repair with bioinductive implant, which was performed on 05/10/[address] Blancas. The patient reports he is doing well but still having pain. He rates his pain a 7/10 while in the office today. Sutures were removed and steri-stripes were applied. The patient has his first physical therapy appointment tomorrow, which he has agreed to attend. He will remain in the sling for 6 weeks. Follow up will be in 4 weeks, or sooner if needed. Patient Instructions: Scribed for Geneva Oconnell PA-C by Adriana Gordon director medical affairs, on 05/16/2023 at 12:30 pm, EST. Coding Level of Care Code Global (13112) Diagnoses Status post right rotator cuff repair Z98.890 Diabetes E11.9
== END 2023-05-16 13:56 | disposition home or self-care (01) ==
PROVIDERS: PCP Internal Medicine; Visit Provider Physician Assistant
DX: Z98.890 Other specified postprocedural states (principal); E11.9 Type 2 diabetes mellitus without complications
CPT/HCPCS: 99024

== ENCOUNTER → 2023-05-16 12:22 | Outpatient (BNVA) | payer OTHER, MEDICAID, SELFPAY | PROVIDERS: PCP Internal Medicine; Visit Provider Physician Assistant ==

== ENCOUNTER 2023-06-13 12:43 | Outpatient (AMB) | payer OTHER, MEDICAID, SELFPAY ==
--- NOTE | 2023-06-13 12:48 | MHC.OFFVIS ---
Intake Intake Visit Reasons: PO- Rt RTC Repair 05/10/23 NE Intake Note: Alan is a 53 year old right hand dominant male who presents today for a post op appointment s/p right RTC repair 05/10/23 NE. Patient reports he is a bit sore due too coming from PT. He states having pain in the anterior aspect of the shoulder. Allergies No Known Allergies Allergy (Verified 06/13/23 12:49) HPI PO- Rt RTC Repair 05/10/23 NE HPI Details 53-year-old male who presents in the office today 1 month status post right rotator cuff repair with bioinductive implant, which was performed on 05/10/[address] Blancas. The patient reports he is a bit sore due to coming from physical therapy. He claims the pain is on the anterior aspect of the right shoulder. [facility] Medical History Diverticulitis Diabetic acidosis, type II HTN (hypertension) Surgical History No pertinent past surgical history Family History Mother Diabetes HTN (hypertension) Glaucoma Father No problems noted. Maternal Grandmother Glaucoma Diabetes HTN (hypertension) Heart attack Maternal Uncle Glaucoma HTN (hypertension) Diabetes AIDS Social History Household Members: None Alcohol intake: never Patient Tobacco Use Status: Current everyday Tobacco user Tobacco use type: Cigarette Cigarette Packs Per Day: 0.5 Cigarettes Per Day: 10.0 Years Smoked: 40 Substance Use Type: Marijuana Review of Systems Const All systems reviewed & are unremarkable except as noted in HPI and below Physical Exam Const General: cooperative, healthy appearing and no acute distress Resp Effort & Inspection: normal respiratory effort and able to speak in complete sentences Cardio Rate: regular rate Peripheral pulses: Peripheral pulses 2+ throughout GI Palpation (GI): Soft to palpation Skin Lesions: no lesions Rashes: no rashes Extrem Other: Right shoulder: Incision site is well approximated and healed. No signs of infection. Forward flexion to 60 degrees. NVI. Assessment & Plan Assessment & Plan (1) Status post right rotator cuff repair: Comment: 05/10/2023 NE Code(s): Z98.890 - Other specified postprocedural states Plan Mr. Scott is a 53-year-old male who presents in the office today 1 month status post right rotator cuff repair with bioinductive implant, which was performed on 05/10/[address] Blancas. The patient reports he is a bit sore due to coming from physical therapy. He claims the pain is on the anterior aspect of the right shoulder. The patient will continue to work with physical therapy. He can discontinue the sling at 6 weeks post-op. Follow up will be in 6 weeks, or sooner if needed. Patient Instructions: Scribed for Geneva Oconnell PA-C by Adriana Gordon pesticide use medical coordinator, on 06/13/2023 at 12:48 pm, EST. Coding Level of Care Code Global (38830) Diagnoses Status post right rotator cuff repair Z98.890
== END 2023-06-13 13:04 | disposition home or self-care (01) ==
PROVIDERS: PCP Internal Medicine; Visit Provider Physician Assistant
DX: Z98.890 Other specified postprocedural states (principal)
CPT/HCPCS: 99024

== ENCOUNTER → 2023-06-13 12:43 | Outpatient (BNVA) | payer OTHER, MEDICAID, SELFPAY | PROVIDERS: PCP Internal Medicine; Visit Provider Physician Assistant ==

== ENCOUNTER 2023-07-20 14:00 | Outpatient (RCR) | payer MEDICAID, SELFPAY | END 2023-08-28 09:47 | disposition home or self-care (01) | LOC: HO.PT 14:00 | PROVIDERS: PCP Internal Medicine; Visit Provider Physician Assistant | DX: M75.101 Unspecified rotator cuff tear or rupture of right shoulder, not specified as traumatic (principal); Z98.890 Other specified postprocedural states | CPT/HCPCS: 97110; 97112; 97140; 97161; 97530 ==

== ENCOUNTER 2023-07-27 11:02 | Outpatient (AMB) | payer OTHER, MEDICAID, SELFPAY ==
--- NOTE | 2023-07-27 11:38 | A.OFFVIS_ITS ---
Intake Intake Visit Reasons: PO-Rt RTC Repair 05/10/23 NE Intake Note: Patient reports that he is having a clicking sensation of the shoulder with ROM. He has mild pain with overhead movements. Allergies No Known Allergies Allergy (Verified 06/13/23 12:49) HPI PO-Rt RTC Repair 05/10/23 NE HPI Details Alan is a 53 year old man who presents ~10 weeks S/P right RTC repair. He says he is doing well, but has some shoulder pain particularly with overhead activities. He also notes a clicking sensation with shoulder motion. He has discontinued his sling and completed his PT. [facility] Medical History Diverticulitis Diabetic acidosis, type II HTN (hypertension) Surgical History No pertinent past surgical history Family History Mother Diabetes HTN (hypertension) Glaucoma Father No problems noted. Maternal Grandmother Glaucoma Diabetes HTN (hypertension) Heart attack Maternal Uncle Glaucoma HTN (hypertension) Diabetes AIDS Social History Household Members: None Alcohol intake: never Patient Tobacco Use Status: Current everyday Tobacco user Tobacco use type: Cigarette Cigarette Packs Per Day: 0.5 Cigarettes Per Day: 10.0 Years Smoked: 40 Substance Use Type: Marijuana Review of Systems Const All systems reviewed & are unremarkable except as noted in HPI and below Physical Exam Const General: no acute distress, alert and awake Orientation/consciousness: patient oriented x3 HEENT Head: Yes normocephalic and Yes atraumatic Eyes EOM: EOMs intact bilaterally Resp Effort & Inspection: normal respiratory effort and able to speak in complete sentences Cardio Jugular venous distension: no JVD Skin General skin exam: turgor normal Rashes: no rashes Neuro General: patient oriented x3 Extrem Other: 35/90/130/S1 Smooth abduction No splinting Psych Appearance: grossly normal Affect: normal affect Attitude: cooperative Assessment & Plan Assessment & Plan (1) Status post right rotator cuff repair: Comment: 05/10/2023 NE Code(s): Z98.890 - Other specified postprocedural states Plan: doing very well no ROM restrictions Avoid heavy lifting for ~6 months Plan Scribed for Delroy Blancas MD by Galdino Garcia, medical practice administrator, on 07/27/23 at 11:45 AM, EST. Coding Level of Care Code Global (58810) Diagnoses Status post right rotator cuff repair Z98.890
== END 2023-07-27 12:04 | disposition home or self-care (01) ==
PROVIDERS: PCP Internal Medicine; Visit Provider Orthopaedic Surgery
DX: Z98.890 Other specified postprocedural states (principal)
CPT/HCPCS: 99024

== ENCOUNTER → 2023-07-27 11:02 | Outpatient (BNVA) | payer OTHER, MEDICAID, SELFPAY | PROVIDERS: PCP Internal Medicine; Visit Provider Orthopaedic Surgery | DX: Z47.89 Encounter for other orthopedic aftercare (principal) | CPT/HCPCS: 99212 ==

== ENCOUNTER 2023-10-23 09:14 | Outpatient (REF) | payer OTHER, MEDICAID, SELFPAY ==
[2023-10-23 14:29] LABS: Estimated Average Glucose 186 mg/dL; Hemoglobin A1c % 8.1 % (<6.0)
[2023-10-23 14:58] LABS: Alanine Aminotransferase 54 U/L (0-40); Albumin Level 4.2 g/dL (3.5-5.0); Alkaline Phosphatase 85 U/L (39-117); Anion Gap 14 (12-20); Aspartate Amino Transferase 30 U/L (5-37); Bilirubin Total 0.4 mg/dL (0.0-1.0); Blood Urea Nitrogen 12 mg/dL (9-16); Calcium 9.2 mg/dL (8.4-10.2); Carbon Dioxide 24 mmol/L (22-29); Chloride 103 mmol/L (96-108); Cholesterol 179 mg/dL (<200); Estimated Glomerular Filt Rate 59; Glucose Random 295 mg/dL (60-115); HDL Cholesterol 34 mg/dL (>40); LDL Cholesterol Calculated 103 mg/dL (<100); Potassium 3.6 mmol/L (3.3-5.1); Sodium 137 mmol/L (135-145); Total Protein 7.1 g/dL (6.5-8.0); Triglycerides 214 mg/dL (<150)
== END 2023-10-23 09:15 | disposition home or self-care (01) ==
LOC: HO.CHCLDS 09:14
PROVIDERS: Visit Provider Internal Medicine
DX: E11.9 Type 2 diabetes mellitus without complications (principal)
CPT/HCPCS: 36415; 80053; 80061; 83036

== ENCOUNTER 2024-11-18 09:48 | Outpatient (REF) | payer OTHER, MEDICAID, SELFPAY ==
--- OUTSIDE RECORDS SUMMARY | 2024-11-18 11:24 | XMS_ITS | Encounter Summary ---
Author Organization [employer] Address [address] [place] [address] Care Team Providers Care Clerk General Office Name Role Phone Barrett Tafoya MD Primary Care Prov ider Reason for Visit * Reason Onset Date Comments Appointment Request 01/04/2024 Encounter Details Date Type Department Care Team ([facility] Contact Info) Description 01/04/2024 Telephone [facility] MEDICINE [address] [place] [address] Barrett Tafoya MD [address] [place] [address] Appointment Request Social History Tobacco Use Types Packs/Day Years Used Date Smoking Tobacco: Every Day Cigarettes Passive Smoke Exposure: Never Smokeless Tobacco: Never Alcohol Use Standard Drinks/Week Comments Never 0 (1 standard drink = 0.6 oz pur e alcohol) Depression Answer Date Recorded Patient Health Questionnaire-9 Score 0 08/15/2023 Patient Health Questionnaire-9 Score 0 08/15/2023 Last PHQ-9: Questionnaire Data Not on file 0 08/15/2023 Housing Stability Answer Date Recorded What is your housing situation today? I have bri vargas 11/20/[address] you li ve. Do you have problems with any of the following? None of the above 11/20/2023 Food Insecurity Answer Date Recorded Within the past 12 months, y ou worried that your food would run out before you got money to buy more: Never True 11/20/2023 Within the past 12 months,th e food you bought just didn't last and you didn't have enough money to get more: Never True 03/2024 Transportation Answer Date Recorded In the past 12 months, has l ack of transportation kept you from medical appts, meetings, work or from getting things needed for daily living? No 11/20/2023 Utilities Answer Date Recorded In the past 12 months, has t he electric, gas, oil or water company threatened to shut off services in your home? No 11/20/2023 Depression Answer Date Recorded Patient Health Questionnaire-2 Score 0 08/15/2023 Sex and Gender Information Value Date Recorded Sex Assigned at Male 06/13/2022 10:16 AM EDT Legal Sex Male 10:16 AM EDT Gender Identity Male 06/13/2022 10:16 AM EDT Sexual Orientation Straight 06/13/2022 10 :16 AM EDT documented as of this encounter Miscellaneous Notes * Telephone Encounter - Jesus Donte - 01/04/2024 10:09 AM EDT Tc from pt was unable to make it today's appt with pcp and is requesting to reschedule. Please contact pt at [phone]. documented in this encounter Plan of Treatment Upcoming Encounters Date Type Department Care Team (Late st Contact Info) Description 02/24/2025 10:00 AM EDT Medication Management [facility] MED & PEDS [address] [place] [address] Geneva Calvo PharmD [address] [place] [address] documented as of this encounter Visit Diagnoses Not on filedocumented in this encounter Additional Health Concerns Assessment Noted Time PHQ-9 Depression Total Score: 0 08/15/19 24 9:04 AM EST documented as of this encounter Care Teams Clerk General Office Relationship Specialty Start Date End Date Barrett Tafoya MD [address] [place] [address] PCP - General Internal Medicine 11/01/19 documented as of this encounter
--- OUTSIDE RECORDS SUMMARY | 2024-11-18 11:25 | XMS_ITS | Encounter Summary ---
Author Organization [employer] Address [address] [place] [address] [address] [place] [address] Care Team Providers Care Solutions Delivery Consultant Name Role Phone Barrett Tafoya MD Primary Care Prov ider Reason for Visit * Reason Onset Date Comments Med Refill 04/29/2023 Encounter Details Date Type Department Care Team (Late Contact Info) Description 04/29/2023 Refill [facility] MED & PEDS [address] [place], [place] [phone] Rita Morales MD [address] [place], [place] [phone] Acute pain of right shoulder Social History Tobacco Use Types Packs/Day Years Used Date Smoking Tobacco: Every Day Cigarettes Passive Smoke Exposure: Never Smokeless Tobacco: Never Alcohol Use Standard Drinks/Week Comments Never 0 (1 standard drink = 0.6 oz pur e alcohol) Depression Answer Date Recorded Patient Health Questionnaire-9 Score 3 03/23/2023 Depression Answer Date Recorded Patient Health Questionnaire-2 Score 0 03/23/2023 Sex and Gender Information Value Date Recorded Sex Assigned at Male 06/13/2022 10:16 AM EDT Legal Sex Male 10:16 AM EDT Gender Identity Male 06/13/2022 10:16 AM EDT Sexual Orientation Straight 06/13/2022 10 :16 AM EDT documented as of this encounter Plan of Treatment Upcoming Encounters Date Type Department Care Team (Late Contact Info) Description 02/24/2025 10:00 AM EDT Medication Management [facility] MED & PEDS [address] [place] [address] Geneva Calvo, PharmD [address] [place], [place] [phone] documented as of this encounter Visit Diagnoses Diagnosis Acute pain of right shoulder documented in this encounter Additional Health Concerns Assessment Noted Time PHQ-9 Depression Total Score: 3 03/23/20 23 10:53 AM EDT documented as of this encounter Care Teams Solutions Delivery Consultant Relationship Specialty Start Date End Date Barrett Tafoya MD [address] [place] [id number] PCP - General Internal Medicine 11/01/19 documented as of this encounter
--- OUTSIDE RECORDS SUMMARY | 2024-11-18 11:25 | XMS_ITS | Encounter Summary ---
Author Organization [employer] Address [address] [place] [address] [address] [place] [address] Care Team Providers Care Maintenance Helper Name Role Phone Barrett Tafoya MD Primary Care Prov ider Reason for Visit * Reason Comments Med Refill Encounter Details Date Type Department Care Team ([facility] Contact Info) Description 04/09/2023 Refill [facility] MED & PEDS [address] [place] [address] Barrett Tafoya MD [address] [place] [address] Primary hypertension Social History Tobacco Use Types Packs/Day Years [...] Description 02/24/2025 10:00 AM EDT Medication Management [facility] MED & PEDS [address] [place] [address] Geneva Clavo, PharmD [address] [place], [place] [phone] documented as of this encounter Visit Diagnoses Diagnosis Primary hypertension Unspecified essential hypertension documented in this encounter Additional Health Concerns Assessment Noted Time PHQ-9 Depression Total Score: 3 03/23/20 23 10:53 AM EDT documented as of this encounter Care Teams Maintenance Helper Relationship Specialty Start Date End Date Barrett Tafoya MD [address] [place] [address] PCP - General Internal Medicine 11/01/19 documented as of this encounter
--- OUTSIDE RECORDS SUMMARY | 2024-11-18 11:25 | XMS_ITS | Encounter Summary ---
Author Organization [employer] Address [address] [facility] [address] [place] [address] Care Team Providers Care Communications Controller Name Role Phone Barrett Tafoya MD Primary Care Prov ider Encounter Details Date Type Department Care Team (Late st Contact Info) Description 12/01/2023 Orders Only [facility] MEDICINE [address] [place] [address] Provider, MD Anya Social History Tobacco Use Types Packs/Day Years [...] Description 02/24/2025 10:00 AM EDT Medication Management [facility] MED & PEDS [address] [place] [address] Geneva Calvo, PharmD [address] [place], [place] [phone] documented as of this encounter Procedures Procedure Name Priority Date/Time Associated Diagnosis Comments HM COLONOSCOPY Routine 04/27/2022 12:12 PM EDT documented in this encounter Results * Hm Colonoscopy (04/27/2022 12:12 PM EDT) us Historical Provider HEALTH MAINTENANCE Final Result documented in this encounter Visit Diagnoses Not on filedocumented in this encounter Additional Health Concerns Assessment Noted Time PHQ-9 Depression Total Score: 0 08/15/19 24 9:04 AM EST documented as of this encounter Care Teams Communications Controller Relationship Specialty Start Date End Date Barrett Tafoya MD [address] [place] [address] PCP - General Internal Medicine 11/01/19 documented as of this encounter
--- OUTSIDE RECORDS SUMMARY | 2024-11-18 11:25 | XMS_ITS | Encounter Summary ---
Author Organization [employer] Address [address] [facility] 7 [place] [address] Care Team Providers Care Surveillance Officer Name Role Phone Barrett Tafoya MD Primary Care Prov ider Reason for Visit * Reason Onset Date Comments Nurse Triage 09/18/2024 Encounter Details Date Type Department Care Team ([facility] st Contact Info) Description 09/18/2024 Telephone [facility]S [address] [place] [address] Barrett Tafoya MD [address] [place] [address] Nurse Triage Social History Tobacco Use Types Packs/Day Years Used Date Smoking Tobacco: Every Day Cigarettes Passive Smoke Exposure: Never Smokeless Tobacco: Never Alcohol Use Standard Drinks/Week Comments Never 0 (1 standard drink = 0.6 oz pur e alcohol) Depression Answer Date Recorded Patient Health Questionnaire-9 Score 14 04/22/2024 Patient Health Questionnaire-9 Score 14 04/22/2024 Last PHQ-9: Questionnaire Data Not on file 0 04/22/2024 Housing Stability Answer Date Recorded What is [...] Answer Date Recorded Patient Health Questionnaire-2 Score 4 04/22/2024 Sex and Gender Information Value Date Recorded Sex Assigned at Male 06/13/2022 10:16 AM EDT Legal Sex Male 10:16 AM EDT Gender Identity Male 06/13/2022 10:16 AM EDT Sexual Orientation Straight 06/13/2022 10 :16 AM EDT documented as of this encounter Miscellaneous Notes * Telephone Encounter - Elise Cruz RN - 09/18/2024 11:25 AM EST Triage call Pt reports injured low back while lifting heavy box yesterday. Pt denied chronic back problem, no sound heard when injured, no radiation of pain. Pt has taken advil with no effect, ice/heat without effect as well. Pt is advised to come to [facility] today no apts available in [facility] this week. Pt agrees with this disposition and advised to rest with legs up as much as possible. Continue with heat/ice, tylenol/ibuprofen at home. Pt agrees with home care advised. Pt agrees with disposition. Protocol Used: Back Injury (Adult) Protocol-Based Disposition: See in Office or Video Visit Today Video visit not offered Positive Triage Question: * Patient wants to be seen * All higher-acuity triage questions were negative Care Advice Discussed: * Reassurance and Education - Bending or Twisting Injury (Strain, Sprain) * Use a Cold Pack for Pain, Swelling, or Bruising * Use Heat on Area After 48 Hours * Avoid Heavy Lifting and Sports * Rest vs. Movement * Reasons To Call Back - Severe pain lasts over 2 hours after pain medicine and ice - Swelling or bruise becomes over 4 inches (10 cm; more than size of palm). - Pain not improving after 3 days - Pain or swelling lasts over 7 days - You become worse * Telephone Encounter - lEsa Magana - 09/18/2024 10:56 AM EST Symptom: Back Pain - Not From Injury Outcome: Schedule an appointment to be seen within 3 days Reason: Caller denied all higher acuity questions The caller accepted this outcome. documented in this encounter Plan of Treatment Upcoming Encounters Date Type Department Care Team ([facility] st Contact Info) Description 02/24/2025 10:00 AM EDT Medication Management [facility] MED & PEDS [address] [place] [address] Geneva Calvo, PharmD [address] [place] [address] documented as of this encounter Visit Diagnoses Not on filedocumented in this encounter Additional Health Concerns Assessment Noted Time PHQ-9 Depression Total Score: 14 024 11:27 AM EDT documented as of this encounter Care Teams Surveillance Officer Relationship Specialty Start Date End Date Barrett Tafoya MD [address] [place] [address] PCP - General Internal Medicine 11/01/19 documented as of this encounter
--- OUTSIDE RECORDS SUMMARY | 2024-11-18 11:25 | XMS_ITS | Encounter Summary ---
Author Organization [employer] Address [address] [facility] [address] [place] [address] Care Team Providers Care Reimbursement Spec Name Role Phone Barrett Tafoya MD Primary Care Prov ider Encounter Details Date Type Department Care Team (Late st Contact Info) Description 09/18/2024 Telephone [facility] MEDICINE [address] [place] [address] Barrett Tafoya MD [address] [place] [address] Social History Tobacco Use Types Packs/Day Years [...] Description 02/24/2025 10:00 AM EDT Medication Management [facility] MED & PEDS [address] [place], [place] [phone] Geneva Calvo, PharmD [address] [place] [address] documented as of this encounter Visit Diagnoses Not on filedocumented in this encounter Additional Health Concerns Assessment Noted Time PHQ-9 Depression Total Score: 14 024 11:27 AM EDT documented as of this encounter Care Teams Reimbursement Spec Relationship Specialty Start Date End Date Barrett Tafoya MD [address] [place], [place] [phone] PCP - General Internal Medicine 11/01/19 documented as of this encounter
--- OUTSIDE RECORDS SUMMARY | 2024-11-18 11:25 | XMS_ITS | Encounter Summary ---
Author Organization [employer] Address [address] [facility] [address] [place] [address] Care Team Providers Care Tread Booker Name Role Phone Barrett Tafoya MD Primary Care Prov ider Encounter Details Date Type Department Care Team (Late st Contact Info) Description 12/28/2023 Orders Only [facility]S [address] [place], [place] [phone] ProviderAnya MD Social History Tobacco Use Types Packs/Day Years [...] Description 02/24/2025 10:00 AM EDT Medication Management [facility] MED & PEDS [address] [place] [address] Geneva Calvo, MariluzD [address] [place] [address] documented as of this encounter Procedures Procedure Name Priority Date/Time Associated Diagnosis Comments XR KNEE 3 VIEWS RIGHT Routine 05/24/2023 4:05 PM EDT documented in this encounter Results * XR Knee 3 Views Right (05/24/2023 4:05 PM EDT) Anatomical Region Laterality Modality Lower Extremities, Knee Right Radiogra phic Imaging us Historical Provider MD CONKLIN XR PROCEDURES Final R esult documented in this encounter Visit Diagnoses Not on filedocumented in this encounter Additional Health Concerns Assessment Noted Time PHQ-9 Depression Total Score: 0 08/15/19 24 9:04 AM EST documented as of this encounter Care Teams Tread Booker Relationship Specialty Start Date End Date Barrett Tafoya MD [address] [place] [address] PCP - General Internal Medicine 11/01/19 documented as of this encounter
--- OUTSIDE RECORDS SUMMARY | 2024-11-18 11:25 | XMS_ITS | Encounter Summary ---
Author Organization [employer] Address [address] [facility] [address] [place] [address] Care Team Providers Care Inner Diameter Grinder Tool Name Role Phone Barrett Tafoya MD Primary Care Prov ider Encounter Details Date Type Department Care Team (Latest Contact Info) Description 11/18/2024 Travel Social History Tobacco Use Types Packs/Day Years [...] Upcoming Encounters Date Type Department Care Team ([facility] st Contact Info) Description 02/24/2025 10:00 AM EDT Medication Management [facility] MED & PEDS [address] [place] [address] Geneva Calvo, PharmD [address] [place] [address] documented as of this encounter Visit Diagnoses Not on filedocumented in this encounter Additional Health Concerns Assessment Noted Time PHQ-9 Depression Total Score: 14 024 11:27 AM EDT documented as of this encounter Care Teams Inner Diameter Grinder Tool Relationship Specialty Start Date End Date Barrett Tafoya MD [address] [place] [address] PCP - General Internal Medicine 11/01/19 documented as of this encounter
--- OUTSIDE RECORDS SUMMARY | 2024-11-18 11:25 | XMS_ITS | Clinical Summary ---
Author Organization [employer] Address [address] [facility] [address] [place] [address] Care Team Providers Care Manager Tax Name Role Phone Barrett Tafoya MD Primary Care Prov ider Allergies No known active allergies Medications Diclofenac Sodium (Voltaren) 1 % gel Apply 2 g topically 2 times daily. 100 g 023 Active Varenicline Tartrate, Starter, 0.5 MG X 11 & 1 MG X 42 tablet therapy pack Take 0.5 mg by mouth 2 times daily for 5 days, THEN 1 mg 2 times daily. 53 each 023 Active varenicline (Chantix) 1 MG tablet Take 1 tablet (1 mg) by mouth 2 times daily. Take with full glass of water. 60 tablet 2 023 Active glucose blood (FREESTYLE LITE) test strip TEST BLOOD SUGAR 3 TIMES A DAY 100 each 11 Active Blood Glucose Monitoring Suppl (FreeStyle Lite) w/Device kit 1 kit Once per day. 1 kit Active FreeStyle lancets 1 each by Other route Once per day. 100 each 024 2024 Active clotrimazole (Lotrimin) 1 % cream APPLY TOPICALLY TO THE AFFECTED AREA TWICE DAILY 30 g 11 024 Active metFORMIN (Glucophage) 1000 MG tablet TAKE 1 TABLET BY MOUTH EVERY MORNING AND 1 TABLET EVERY EVENING 180 tablet 3 025 Active ibuprofen 400 MG tablet Take 1 tablet (400 mg) by mouth every 6 (six) hours if needed for moderate pain or fever for up to 30 doses. 30 tablet 025 Active tiZANidine (Zanaflex) 2 MG tablet Take 1 tablet (2 mg) by mouth every 8 (eight) hours if needed for muscle spasms. 30 tablet 1 025 Active lidocaine (Lidoderm) 5 % patchIndications: Acute pain of right shoulder Apply 1 patch topically Once per day. Remove & discard patch within 12 hours or as directed by MD. 30 patch 1 025 Active Jardiance 25 MG TAKE 1 TABLET(25 MG) BY MOUTH IN THE MORNING 90 tablet 3 Active acetaminophen (Tylenol) 500 MG tablet Take 2 tablets (1,000 mg) by mouth every 6 (six) hours if needed for moderate pain or fever for up to 25 doses. 50 tablet 025 Active hydrALAZINE (Apresoline) 100 MG tabletIndications :Primary hypertension Take 1 tablet (100 mg) by mouth 2 times daily. TAKE 1 TABLET BY MOUTH TWICE DAILY WITH FOOD 180 tablet 3 025 2025 Active oxyCODONE (Roxicodone) 10 MG immediate release tablet TAKE 1 TABLET BY MOUTH EVERY 6 HOURS AFTER SURGERY NEEDED FOR PAIN 025 Active losartan (Cozaar) 100 MG tabletIndications :Primary hypertension TAKE 1 TABLET(100 MG) BY MOUTH IN THE MORNING 90 tablet 3 025 Active chlorthalidone (Hygroton) 25 MG tabletIndications :Primary hypertension TAKE 1 TABLET BY MOUTH EVERY DAY 90 tablet 3 025 Active Dulaglutide (Trulicity) 4.5 MG/0.5ML solution auto-injector Inject 4.5 mg under the skin 1 (one) time per week. 2 mL 11 025 Active atorvastatin (Lipitor) 40 MG tabletIndications :Mixed hyperlipidemia TAKE 1 TABLET BY MOUTH EVERY DAY 90 tablet 3 025 Active risperiDONE (RisperDAL) 0.25 MG tabletIndications :Bipolar disorder in partial remission, most recent episode unspecified type (CMS/HCC) Take 1 tablet (0.25 mg) by mouth at bedtime. Along with Risperidone 1 mg at bedtime 90 tablet 1 024 2024 Discontinued(M ed list cleanup (will not trigger notification to Pharmacy)) risperiDONE (RisperDAL) 1 MG tabletIndications :Bipolar disorder in partial remission, most recent episode unspecified type (CMS/HCC) Take 1 tablet (1 mg) by mouth at bedtime. Along with Risperidone 0.25 mg at bedtime. 90 tablet 1 024 2024 Discontinued(M ed list cleanup (will not trigger notification to Pharmacy)) chlorthalidone (Hygroton) 25 MG tabletIndications :Primary hypertension TAKE 1 TABLET BY MOUTH EVERY DAY 90 tablet 3 024 2024 Discontinued(R eorder (will not trigger notification to Pharmacy)) losartan (Cozaar) 100 MG tabletIndications :Primary hypertension TAKE 1 TABLET(100 MG) BY MOUTH IN THE MORNING 90 tablet 3 024 2024 Discontinued atorvastatin (Lipitor) 40 MG tabletIndications :Mixed hyperlipidemia TAKE 1 TABLET BY MOUTH EVERY DAY 90 tablet 3 024 2024 Discontinued(R eorder (will not trigger notification to Pharmacy)) pen needle 30G x 5 mm misc Use as instructed 100 each 12 024 2024 Discontinued(M ed list cleanup (will not trigger notification to Pharmacy)) nicotine polacrilex (Commit) 4 MG lozenge Dissolve 1 lozenge (4 mg) in the mouth every 2 (two) hours if needed for smoking cessation. 100 lozenge 1 025 2024 Discontinued(M ed list cleanup (will not trigger notification to Pharmacy)) Dulaglutide (Trulicity) 3 MG/0.5ML solution auto-injector INJECT 3MG UNDER THE SKIN ONCE PER WEEK 2 mL 1 025 2024 Discontinued(D uplicate order (will not trigger notification to Pharmacy)) hydrALAZINE (Apresoline) 100 MG tabletIndications :Primary hypertension TAKE 1 TABLET(100 MG) BY MOUTH TWICE DAILY WITH FOOD 180 tablet 3 025 2024 Discontinued(D uplicate order (will not trigger notification to Pharmacy)) empagliflozin (Jardiance) 25 MG Take 1 tablet (25 mg) by mouth Once per day. 90 tablet 3 025 2024 Discontinued(D uplicate order (will not trigger notification to Pharmacy)) Dulaglutide (Trulicity) 3 MG/0.5ML solution auto-injector Inject 3 mg under the skin 1 (one) time per week. 3 mL 1 025 2024 Discontinued(D uplicate order (will not trigger notification to Pharmacy)) Dulaglutide (Trulicity) 4.5 MG/0.5ML solution auto-injector Inject 4.5 mg under the skin 1 (one) time per week. 3 mL 3 025 2024 Discontinued(R eorder (will not trigger notification to Pharmacy)) celecoxib (CeleBREX) 200 MG capsule Take 1 capsule by mouth Once per day. 025 2024 Discontinued(M ed list cleanup (will not trigger notification to Pharmacy)) Active Problems Problem Noted Date Diagnosed Date Class 1 obesity 10/23/2024 Tobacco abuse 06/12/2023 Assessment & Plan (06/12/2023 10:41 AM EDT): Currently smoking 1/2 ppd. Will start Chantix 0.5 mg BID 5 d then 1 mg BID. Reviewed strategies for getting ready to decrease and quit. Chronic pain of right knee 04/27/2023 Assessment & Plan (04/22/2024 4:33 PM EDT): Will place ortho referral for evaluation Assessment & Plan (04/27/2023 11:09 AM EDT): Will order a right knee xray, and will refer to ortho for evaluation Chronic bilateral low back pain without sciatica 04/27/2023 Assessment & Plan (04/22/2024 4:35 PM EDT): Will refer to chiropractor for evaluation Assessment & Plan (04/27/2023 11:10 AM EDT): Will be referred to chiropractor Type 2 diabetes mellitus wit hout complication, without long-term current use of insulin 03/20/2023 Assessment & Plan (10/02/2024 12:16 PM EST): Improving, will increase trulicity to 4.5mg, continue with jardiance and metformin, follow up in 1 month Assessment & Plan (08/27/2024 12:22 AM EST): Improving, will increase trulicity to 3mg, continue rest of treatment, keep low carb/no sugar diet, new labs ordered for guidance of therapy Assessment & Plan (06/04/2024 2:44 PM EDT): Improving, symptoms of pseudohypoglycemia improved, will increase trulicity to 1.5mg, continue low carb/no sugar diet, follow up in 4 weeks Assessment & Plan (04/29/2024 5:51 PM EDT): Patient having symptoms of pseudohypoglycemia, told him it may take up to a week for his body to get used to a drop in glucose, regardless will discontinue glipizide, toldt to get 3 meals with snacks, call back if new symptoms arise Assessment & Plan (04/22/2024 4:35 PM EDT): Uncontrolled, will add trulicity, risk vs benefits discussed, follow up in 4-6 weeks Assessment & Plan (10/24/2023 6:56 AM EDT): Not at target A1c today was 8.5%, will add glipizide, continue low carb diet and no sugar diet, follow up in 1 month Assessment & Plan (09/21/2023 9:26 AM EST): Patient not monitoring or taking his medications for the past 2 weeks, discussed risk of not adhering to therapy, will follow up in 1 month Assessment & Plan (06/21/2023 11:56 AM EST): Not at targer, will add jardiance, reinforced low carb/no sugar diet, follow up in 3 months Assessment & Plan (05/29/2023 8:03 PM EDT): Told to monitor at home, no episode of hypoglycemia, will increase metformin to 1000mg bid, follow up in 1 monht Assessment & Plan (04/27/2023 11:09 AM EDT): Tolerated metformin, will increase dose to 1000mg bid, lifestyle modifications reinforced, not monitoring glucose at home Assessment & Plan (03/20/2023 12:33 PM EDT): Uncontrolled, will start on metformin 500mg BID, reinforced importance of diet, will follow up in 1 month Sleep disorder breathing 01/26/2023 Assessment & Plan (01/26/2023 9:33 AM EDT): Symptoms consistent with obstructive sleep apnea r/t morbid obesity, prior history of successful treatment with CPAP. This is certainly contributing to his low mood, fatigue, and poor concentration. He will call and see if he can have the sleep study expedited. Mixed hyperlipidemia 01/05/2023 Assessment & Plan (11/20/2023 3:34 PM EDT): Not at target will increase atorvastatin to 40mg, exercise/weight loss encouraged, avoid fast/fried food, increase vegetable and fish Assessment & Plan (01/27/2023 10:36 AM EDT): Meds will be renewed, will follow up in 1 month Assessment & Plan (01/05/2023 5:05 PM EDT): Will order new labs foir guidance of therapy Acute pain of right shoulder 11/03/2022 Assessment & Plan (11/03/2022 12:36 PM EDT): Patient fell on rigth side of his shoulder almost 1 month ago, xray did not showed dislocation or fracture, saw ortho and underwent injection, pain has not improved much, will provide lidocaine/voltaren gel, follow up ortho Primary hypertension 09/27/2022 Assessment & Plan (10/02/2024 12:16 PM EST): Controlled, continue current therapy , keep bp log, follow up in 1 month Assessment & Plan (06/04/2024 2:43 PM EDT): Controlled, he is taking his medications, not tracking his bp at home, reinforced importance of monitoring, will follow up in 3 months Assessment & Plan (04/22/2024 4:34 PM EDT): Controlled, continue low sodium diet and exercise as tolerated, keep bp log, follow up in 4 month Assessment & Plan (11/20/2023 3:12 PM EDT): Uncontrolled, will increase hydralazine to 100mg TID, continue low sodium diet and exercise as tolerated Assessment & Plan (10/24/2023 6:55 AM EDT): Not at target, will increase hydralazine, continue low sodium diet and exercise, keep bp log and follow up in 1 month Assessment & Plan (09/21/2023 9:26 AM EST): Not at target, patient refers has been off hypertension/DM medications for over 2 weeks, discussed importance of adherence, risk of not following diet and keeping bp at target, will follow up in 1 month Assessment & Plan (06/21/2023 11:56 AM EST): Controlled, reinforced low sodium diet and exercise as tolerated Assessment & Plan (05/29/2023 8:02 PM EDT): Controlled, he has not been monitoring his blood pressure at home, will leave on current therapy, reinforced low sodium diet and exercise as tolerated, Assessment & Plan (04/27/2023 11:08 AM EDT): Not at target, will increase hydralazine to 50mg TID, continue chlorthalidone and losartan 100mg, reinforced low sodium diet and exercise as tolerated. Told to monitor bp daily at home which he is not doing, will follow up in 1 month Assessment & Plan (03/20/2023 12:29 PM EDT): Not at target, will increase hydralazine to 50mg bid, follow up in 1 month, keep bp log, reinforced low sodium diet and exercise Assessment & Plan (01/27/2023 10:35 AM EDT): Patient refers not taking his medication in er 3 weeks, refers his car was towed and medications were inside his car, reviewed importance of medication adherance, complications associated with not taking his meds. Will follow up in 1 month Assessment & Plan (01/05/2023 5:04 PM EDT): Patient not monitoring his bp, discussed importance of daily monitoring, target<140/90, reinforced low sodium diet and exercise as tolerated Assessment & Plan (11/03/2022 12:37 PM EDT): Uncontrolled, he has not taken his bp meds for the past 5 days, currently asymptomatic, discussed risk of stroke/NH, complication associated to uncontrolled bp. Assessment & Plan (09/27/2022 1:29 PM EST): Controlled, reinforced low sodium diet and exercise as tolerated, new lab order will be placed, will renew meds Snoring 09/27/2022 Assessment & Plan (09/27/2022 1:30 PM EST): Will place order for sleep study, patient has hx of using sleep apnea machine Screening for prostate cancer 09/27/2022 Assessment & Plan (09/27/2022 1:30 PM EST): Will order PSA Screening for colon cancer 09/27/2022 Overview (09/27/2022): Patient had study done on 04/2022, due in 10 years Bipolar disorder in partial remission 09/22/2022 Assessment & Plan (08/15/2023 9:25 AM EST): Presented with psychotic features (command auditory hallucinations) which patient does not find distressing. Previous suicide attempts (cutting and pills). Episodes of sadness, depression, low mood with other periods of excessive energy, taking on unrealistic projects. Also PTSD with history of childhood trauma plus long incarceration. Now doing very well, with stable mood, hallucinations controlled. Will continue Risperidone 1 mg plus 0.25 mg at bedtime. On 06/12/2023 provider informed atient that I would be retiring within the next year or so, but we would make every effort to ensure smooth transition of care. F/U with me in 2 months. Assessment & Plan (06/12/2023 10:40 AM EDT): Presented with psychotic features (command auditory hallucinations) which patient does not find distressing. Previous suicide attempts (cutting and pills). Episodes of sadness, depression, low mood with other periods of excessive energy, taking on unrealistic projects. Also PTSD with history of childhood trauma plus long incarceration. Now doing very well, with stable mood, hallucinations controlled. Will continue Risperidone 1 mg plus 0.25 mg at bedtime. Today provider informed atient that I would be retiring within the next year or so, but we would make every effort to ensure smooth transition of care. F/U with me in 2 months. Assessment & Plan (03/23/2023 11:33 AM EDT): Presented with psychotic features (command auditory hallucinations) which patient does not find distressing. Previous suicide attempts (cutting and pills). Episodes of sadness, depression, low mood with other periods of excessive energy, taking on unrealistic projects. Also PTSD with history of childhood trauma plus long incarceration. Doing significantly better, with more stable mood, hallucinations controlled. Will continue Risperidone 1 mg plus 0.25 mg at bedtime. F/U with me in 2-3 months. Assessment & Plan (01/26/2023 9:31 AM EDT): Presented with psychotic features (command auditory hallucinations) which patient does not find distressing. Previous suicide attempts (cutting and pills). Episodes of sadness, depression, low mood with other periods of excessive energy, taking on unrealistic projects. Also PTSD with history of childhood trauma plus long incarceration. Doing significantly better, with more stable mood, hallucinations controlled. Will continue Risperidone 1 mg plus 0.25 mg at bedtime. F/U with me in 6-8 weeks Assessment & Plan (12/15/2022 9:36 AM EDT): Presented with psychotic features (command auditory hallucinations) which patient does not find distressing. Previous suicide attempts (cutting and pills). Episodes of sadness, depression, low mood with other periods of excessive energy, taking on unrealistic projects. Also PTSD with history of childhood trauma plus long incarceration. Doing significantly better, with more stable mood, hallucinations controlled. Will continue Risperidone 1 mg plus 0.25 mg at bedtime. F/U with me in 6 weeks. Recommend calling back to [facility] to inquire about counseling intake. He agrees with the plan. Assessment & Plan (11/03/2022 9:31 AM EDT): with psychotic features (command auditory hallucinations) that patient does not find distressing. Previous suicide attempts (cutting and pills) but no SI currently. Episodes of sadness, depression, low mood with other periods of excessive energy, taking on unrealistic projects. Also PTSD with history of childhood trauma plus long incarceration. Doing better. Will continue Risperidone 1 mg plus 0.25 mg at bedtime. F/U with me in 6 weeks. He agrees with the plan. Assessment & Plan (09/22/2022 9:35 AM EST): with psychotic features (command auditory hallucinations) that patient does not find distressing. Previous suicide attempts (cutting and pills) but no SI currently. Episodes of sadness, depression, low mood with other periods of excessive energy, taking on unrealistic projects. Also PTSD with history of childhood trauma plus long incarceration. Persistent anxiety, mild paranoid features. Will increase to Risperidone 1 mg plus 0.25 mg at bedtime. F/U with me in 6 weeks. He agrees with the plan. Encounters Date Type Department Care Team Description 11/18/2024 Travel 11/04/2024 Telephone [facility] [address] [place] [address] Barrett Tafoya MD No Show 11/04/2024 Telephone [facility] [address] [place] [address] Barrett Tafoya MD 10/29/2024 Telephone [facility] [address] [place] [address] Barrett Tafoya MD 10/26/2024 Refill [facility] [address] [place] [address] Barrett Tafoya MD Primary hypertension 10/25/2024 Population Health Risk Score [facility] [address] [place] [id number] Provider, Population Health Generic 10/04/2024 Telephone [facility] [address] [place] [phone] Barrett Tafoya MD Nurse Triage 10/02/2024 11:30 AM EST Telemedicine [facility] [address] [place] [address] Barrett Tafoya MD Type 2 diabetes mellitus without complication, without long-term current use of insulin (CMS/HCC) (Primary Dx); Primary hypertension 10/02/2024 Travel 10/01/2024 Patient Outreach [facility] [address] [place] [phone] Barrett Tafoya MD Transition Of Care (Tcm) (HDF unscheduled) 09/27/2024 Orders Only [facility] [address] [place] [address] Barrett Tafoya MD Type 2 diabetes mellitus without complication, without long-term current use of insulin (CMS/HCC) (Primary Dx) 09/24/2024 Refill [facility] [address] [place] [address] Barrett Tafoya MD Primary hypertension 09/24/2024 Refill [facility] [address] [place] [id number] Lyndon Pressley MD 09/24/2024 Refill [facility] [address] [place] [address] Barrett Tafoya MD Primary hypertension 09/18/2024 3:40 PM EST Office Visit [facility] [address] [place] [phone] Lyndon Pressley MD Acute bilateral low back pain without sciatica (Primary Dx); Tobacco abuse; Acute pain of right shoulder 09/18/2024 Telephone [facility] [address] [place] [phone] Barrett Tafoya MD 09/18/2024 Telephone [facility] [address] [place] [address] Barrett Tafoya MD Nurse Triage 09/10/2024 Telephone [facility] [address] [place] [address] Geneva Calvo, PharmD 09/05/2024 Refill [facility] [address] [place] [address] Barrett Tafoya MD 08/27/2024 Travel from Last 3 Months Immunizations Name Administration Dates Next Due Hep A, Adult 01/06/2016, 5,10/14/2006,04/05 Hep B, adult 01/06/2016, 5,07/10/2015,08/02,05/08/2006,04/05/2006 Influenza injectable quadriv alent preservative free 04/27/2023,04/22/2022,06/13/2018 Influenza, intradermal, quad rivalent, preservative free 06/12/2017,07/15/2016,07/01/2015,06/03 MMR 07/03/2015 Pneumococcal Polysaccharide PPSV23 07/05/2015, Tdap 11/01/2019,06/28/2012 Family History Medical History Relation Name Comments Diabetes Maternal Grandmother Hypertension Maternal Grandmother Cataracts Mother Diabetes Mother Hypertension Mother Glaucoma Mother's Brother Cataracts Mother's Sister Hypertension Mother's Sister Relation Name Status Comments Maternal Grandmother Mother Mother's Brother Mother's Sister Social History Tobacco Use Types Packs/Day Years Used Date Smoking Tobacco: Every Day Cigarettes Passive Smoke Exposure: Never Smokeless Tobacco: Never Tobacco Cessation:Ready to Q uit: Not Asked; Counseling Given: Not Answered Alcohol Use Standard Drinks/Week Comments Never 0 [...] Orientation Straight 06/13/2022 10 :16 AM EDT Last Filed Vital Signs Vital Sign Reading Time Taken Comments Blood Pressure 124/82 11/18/2024 10:25 AM EDT Pulse 92 11/18/2024 10:25 AM EDT Temperature 37.1 ??C (98.8 ??F) 09/18/2024 3:23 PM ES T Respiratory Rate 18 09/18/2024 3:23 PM EST Oxygen Saturation 99% 09/18/2024 3:23 PM EST Inhaled Oxygen Concentration - - Weight 109 kg (241 lb 3.2 oz) 09/18/2024 3:23 PM EST Height 180.3 cm (5' 11 ) 06/04/2024 1:41 PM EDT Body Mass Index 33.64 06/04/2024 1:41 PM EDT Plan of Treatment Upcoming Encounters Date Type Department Care Team (Late st Contact Info) Description 02/24/2025 10:00 AM EDT Medication Management [facility] [address] [place] [address] Geneva Calvo, PharmD [address] [place] [address] Health Maintenance Due Date Last Done Comments CT Colonography 1972 FIT DNA/Cologuard 1972 FIT 1972 FOBT 1972 Sigmoidoscopy 1972 Alcohol/Substance Use Screening 1984 Family Planning (PISQ) 01/30/1987 Pneumococcal Vaccine: 50+ Years (2 of 2 - PCV) 07/05/2016 07/05/2015, 11/15/2012 Zoster Vaccines (1 of 2) 01/30/2022 COVID-19 Vaccine ( season) 2024 06/29/2022, 08/11/2021, 07/21/2021 Influenza Vaccine (#1) 2024 , 04/22/2022, 06/13/2018, Additional history exists Diabetes: Urine Protein Screening 05/24/2024 05/24/2023, 10/27/2021, 11/01/2019 Depression Monitoring (PHQ-9) 10/20/2024 04/22/2024, 04/22/2024 Lipid Panel 10/22/2024 10/23/2023, 08/0 04/2023, 09/28/2022, Additional history exists SDOH Screening 11/19/2024 11/20/2023 Eye Exam 01/16/2025 01/16/2023, 06/0 12/2022, 01/16/2023, Additional history exists Depression Screening 04/22/2025 04/22/2024, 04/22/20 Diabetes: Foot Exam 04/22/2025 04/22/2024, 04/22/2024, 04/22/2024, Additional history exists Diabetes: Hemoglobin A1C 05/20/2025 04/07/2 025, 04/22/2024, 10/23/2023, Additional history exists Tobacco Screening 09/18/2025 09/18/2024 DTaP/Tdap/Td Vaccines (3 - Td or Tdap) 10/31/2029 11/01/2019, 06/28/2012 Colonoscopy 04/27/2032 04/27/2022 Colorectal Cancer Screening 04/27/2032 RSV Patients and Patients Aged 60 years or older (1 - 1-dose 75+ series) 01/30/2047 Hepatitis A Vaccines Aged Out 01/06/2016, 07/05/2015, 10/14/2006, Additional history exists No longer eligible based on patient's age to complete this topic Hepatitis B Vaccines Completed 01/06/2016, 08/06/2015, 07/10/2015, Additional history exists HIV Screening Completed 09/28/2022, 11/01/2019 Hepatitis C Screening Completed 09/28/2022 HIB Vaccines Aged Out No longer eligi ble based on patient's age to complete this topic HPV Vaccines Aged Out No longer eligi ble based on patient's age to complete this topic IPV Vaccines Aged Out No longer eligi ble based on patient's age to complete this topic Meningococcal Vaccine Aged Out No mounika claritza eligible based on patient's age to complete this topic RSV under 20 months Aged Out No longe r eligible based on patient's age to complete this topic Rotavirus Vaccines Aged Out No longer eligible based on patient's age to complete this topic Procedures Procedure Name Priority Date/Time Associated Diagnosis Comments POCT GLYCATED HEMOGLOBIN, TOTAL Routine 11/18/2024 10:42 AM EDT Type 2 diabetes mellitus without complication, without long-term current use of insulin (CMS/HCC) LIPID PANEL, STANDARD Routine 10/23/2023 9:16 AM EDT Type 2 diabetes mellitus without complication, without long-term current use of insulin (CMS/HCC) MICROALBUMIN, RANDOM (W CREAT) Routine 05/24/2023 1:00 PM EDT Acute pain of right shoulder HEPATITIS C AB W/REFL TO HCV RNA, QN, PCR Routine 09/28/2022 12:15 PM EST Primary hypertension HIV 1 RNA, QN PCR W/RFL BRAD (RTI,PI,INTEGRASE) Routine 09/28/2022 12:15 PM EST Primary hypertension HM COLONOSCOPY Routine 04/27/2022 12:12 PM EDT from Last 3 Months or Most Recently Relevant to Health Maintenance Results * POCT A1C (11/18/2024 10:42 AM EDT) Hemoglobin A1C 6.0 4.0 - 6.0 % QC Media Lot # [id number] Lot# Expiration Date ,[id number] Blood 11/18/2024 10:4 2 AM EDT Barrett Dang MD POINT OF CARE TEST ENTER/EDIT ORDERABLES Final Result * (ABNORMAL) Lipid Panel, Standard (10/23/2023 9:16 AM EDT) Pathologist [facility] Triglycerides 214(H) <150 mg/dL [facility] Comment:Desirable Triglyceri de: less than 150 mg/dLBorderline High Triglyceride 150-199 mg/dLHigh Triglyceride: 200-499 mg/dLVery High Triglyceride: greater than or equal to 5OO mg/dL Cholesterol 179 <200 mg/dL [facility] Comment:Desirable Cholestero l: less than 200 mg/dLBorderline High Cholesterol: 200-239 mg/dLHigh Cholesterol: greater than 239 mg/dL LDL Cholesterol Calculated 103(H) <100 mg/dL [facility] Comment:Desirable LDL: less than 100 mg/dLNear Optimal/Above Optimal LDL: 110- 129 mg/dLBorderline High LDL: 130-159 mg/dLHigh LDL: 160-189 mg/dLVery High LDL: greater than or equal to 190 mg/dL HDL Cholesterol 34(L) >40 mg/dL [facility] Comment:Desirable HDL: great er than 40 mg/dL Note: This HDL assay may give artificially low results in patients with liver disease. Blood Venous blood specimen / Unknown 10/23/2023 9:16 AM EDT 10/23/2023 2:07 PM EDT Barrett Dang MD LAB BLOOD ORDERABL ES Final Result [facility] [address] [place] [phone] * (ABNORMAL) Microalbumin, Random Urine w/Creatinine (05/24/2023 1:00 PM EDT) Micro-Albumin 48.0(H) (<20) MG/L [facility] Comment: The urine microalbumin test is designed to monitor renal function. When screening for Bence Gama proteinuria, urine electrophoresis is recommended. Malb/Creat Ratio 10.1 (0-20) MG/GM [facility] Urine Creat For Micro Albumin 470.2 MG/DL [facility] Comment: Testing performed or reported by [facility], a Service of [facility], [address] [place] [address] Biju Lopez MD, Bowl Topper ROSI# [id number] 05/24/2023 1:00 PM EDT 05/24/2023 4:27 PM EDT [facility] URINE ORDERABLES Final Res ult [facility] [address] [place] [address] * HIV-1 RNA, Quantitative, Real-Time PCR with Reflex to Genotype (RTI, PI, Integrase) (09/28/2022 12:15 PM EST) Pathologist [facility] HIV 1 RNA, QN PCR NOT DETECTED copies/mL [facility], HIV 1 RNA, QN PCR NOT DETECTED Log copies/mL [facility], Comment: REFERENCE RANGE: NOT DETECTED copies/mL ?NOT DETECTED ??Log copies/mL This test was performed using Real-Time Polymerase Chain Reaction. Reportable range is 20 to 10,000,000 copies/mL (1.30-7.00 Log copies/mL). 09/28/2022 12:1 5 PM EST 09/28/2022 12:16 PM EST Narrative [facility] - 10/02/2022 10:13 PM EST FASTING:YES FASTING: YES Barrett Dang MD LAB BLOOD ORDERABL ES Final Result Performing Organization Address [facility] de Phone Number KENNEDY [address] [place] [address], [facility] [place] [address] [employer], [address] [place] [address] * Hepatitis C Antibody with Reflex to HCV, RNA, Quantitative, Real-Time PCR (09/28/2022 12:15 PM EST) Hepatitis C Antibody NON-REACT JAYSON NON-REACT JAYSON [employer] Index <0.02 <1.00 [employer] Comment: HCV antibody was non-reactive. There is no laboratory evidence of HCV infection. In most cases, no further action is required. However, if recent HCV exposure is suspected, a test for HCV RNA (test code 41773) is suggested. For additional information please refer to http://education.[employer]/faq/DRA47m0 (This link is being provided for informational/ educational purposes only.) Blood Venous blood specimen / Unknown 09/28/2022 12:15 PM EST 09/28/2022 12:16 PM EST Narrative [facility] - 10/02/2022 10:13 PM EST FASTING:YES FASTING: YES Barrett Dang MD LAB BLOOD ORDERABL ES Final Result Performing Organization Address [facility] Co de Phone Number KENNEDY [address] [place] [address], [place] [address] [employer] [facility] [address] [place] [address], ([address]) [place] [address] * Hm Colonoscopy (04/27/2022 12:12 PM EDT) Anya Hoffman MD HEALTH MAINTENANCE Final Result from Last 3 Months or Most Recently Relevant to Health Maintenance Insurance [address] [address] C3 Care Teams Manager Tax Relationship Specialty Start Date End Date Barrett Tafoya MD [address] [place] [id number] PCP - General Internal Medicine 11/01/19
[2024-11-18 14:22] LABS: Estimated Average Glucose 123 mg/dL; Hemoglobin A1C 166.1224 umol/L; Hemoglobin A1c % 5.9 % (<6.0); Total Hemoglobin (HGBA1C) 4052.9188 umol/L
[2024-11-18 14:30] LABS: Creatinine Urine 364.79 mg/dL; Microalbum/Creatinine Ratio Ur 10.4 ug/mg cr (<30)
[2024-11-18 14:52] LABS: Alanine Aminotransferase 30 U/L (0-40); Albumin Level 4.5 g/dL (3.5-5.0); Alkaline Phosphatase 92 U/L (39-117); Anion Gap 12 (12-20); Aspartate Amino Transferase 38 U/L (5-37); Bilirubin Total 0.7 mg/dL (0.0-1.0); Blood Urea Nitrogen 15 mg/dL (9-16); Calcium 9.6 mg/dL (8.4-10.2); Carbon Dioxide 24 mmol/L (22-29); Chloride 105 mmol/L (96-108); Cholesterol 153 mg/dL (<200); Estimated Glomerular Filt Rate 58; Glucose Random 153 mg/dL (60-115); HDL Cholesterol 42 mg/dL (>40); LDL Cholesterol Calculated 87 mg/dL (<100); Potassium 3.2 mmol/L (3.3-5.1); Sodium 138 mmol/L (135-145); Total Protein 7.4 g/dL (6.5-8.0); Triglycerides 120 mg/dL (<150)
== END 2024-11-18 09:49 | disposition home or self-care (01) ==
LOC: HO.CHCLDS 09:48
PROVIDERS: Visit Provider Internal Medicine
DX: E11.9 Type 2 diabetes mellitus without complications (principal); E87.6 Hypokalemia
CPT/HCPCS: 36415; 80053; 80061; 82043; 82570; 83036

== ENCOUNTER 2025-02-24 09:52 | Outpatient (REF) | payer OTHER, MEDICAID, SELFPAY ==
--- OUTSIDE RECORDS SUMMARY | 2025-02-24 10:25 | XMS_ITS | Encounter Summary ---
Author Organization [employer] Address [address] [facility] [address] [place] [address] Care Team Providers Care Glass Polisher Name Role Phone Barrett Tafoya MD Primary Care Prov ider Geneva Calvo PharmD Unavailable [phone] Reason for Visit * Reason Onset Date Comments Appointment Request 01/04/2024 Encounter Details Date Type Department Care Team ([facility] Contact Info) Description 01/04/2024 Telephone [facility] [address] [place] [address] Barrett Tafoya MD [address] [place] [address] Appointment Request Social History Tobacco Use Types [...] Miscellaneous Notes * Telephone Encounter - Jesus Kent - 01/04/2024 10:09 AM EDT Tc from pt was unable to make it today's appt with pcp and is requesting to reschedule. Please contact pt at [phone]. documented in this encounter Plan of Treatment Upcoming Encounters Date Type Department Care Team (Late st Contact Info) Description 05/27/2025 9:30 AM EDT Medication Management [facility] [address] [place], [place] [id number] Geneva Calvo, PharmD [address] [place] [address] documented as of this encounter Visit Diagnoses Not on filedocumented in this encounter Additional Health Concerns Assessment Noted Time PHQ-9 Depression Total Score: 0 08/15/19 24 9:04 AM EST documented as of this encounter Care Teams Glass Polisher Relationship Specialty Start Date End Date Barrett Tafoya MD [address] [place], [place] [phone] PCP - General Internal Medicine 11/01/19 Geneva Calvo, PharmD [address] [place], [place] [phone] Pharmacist Internal Medicine 11/18/24 documented as of this encounter
[2025-02-24 15:58] LABS: Potassium 3.9 mmol/L (3.3-5.1)
== END 2025-02-24 09:53 | disposition home or self-care (01) ==
LOC: HO.CHCLDS 09:52
PROVIDERS: Visit Provider Internal Medicine
DX: E87.6 Hypokalemia (principal)
CPT/HCPCS: 36415; 84132